=== PATIENT | female | born 2000 | race Caucasian/White ===

== ENCOUNTER → 2019-04-21 | Outpatient (CLI) | payer SELFPAY | PROVIDERS: Family Provider Nurse Practitioner; Visit Provider Internal Medicine | DX: K76.0 Fatty (change of) liver, not elsewhere classified (principal); R10.13 Epigastric pain | CPT/HCPCS: 76705 ==

== ENCOUNTER 2019-04-28 18:39 | Emergency (ER) | payer SELFPAY ==
[2019-04-28 19:09] LABS: Basophils % 0.3 %; Eosinophils # 0.2 10^3/uL (0.0-0.8); Eosinophils % 2.3 %; Hematocrit 40.4 % (37.0-47.0); Hemoglobin 12.9 g/dL (11.5-15.3); Lymphocytes # 2.1 10^3/uL (0.8-4.8); Lymphocytes % 29.8 %; Mean Corpuscular HGB Conc 31.9 g/dL (30.0-36.0); Mean Corpuscular Volume 84.7 fL (81-99); Mean Platelet Volume 9.9 fL (7.4-10.4); Monocytes # 0.6 10^3/uL (0.2-0.9); Monocytes % 7.8 %; Neutrophils # 4.2 10^3/uL (1.8-7.7); Neutrophils % 59.5 %; Nucleated Red Blood Cells % 0 %; Platelet Count 255 10^3/cmm (130-400); Red Blood Count 4.77 10^6/uL (4.1-5.3); Red Cell Distribution Width 15.2 % (12.1-15.1)
[2019-04-28 19:22] LABS: Alanine Aminotransferase 25 U/L (0-33); Albumin Level 4.6 g/dL (3.5-5.2); Alkaline Phosphatase 86 IU/L (35-105); Anion Gap 16.7 (5-19); Aspartate Amino Transferase 20 U/L (0-32); Blood Urea Nitrogen 12 mg/dL (6-20); Calcium 10.2 mg/Dl (8.6-10.0); Carbon Dioxide 25 mmol/L (22-29); Chloride 101 mmol/L (98-107); Globulin 3.3 g/dL (1.3-4.6); Glucose 114 mg/dL (74-109); Lipase 20 U/L (13-60); Potassium 3.7 mmol/L (3.5-5.1); Sodium 139 mmol/L (136-145); Total Bilirubin 0.3 mg/dL (0.15-1.2); Total Protein 7.9 g/dL (6.6-8.7)
[2019-04-28 20:49] VITALS: BP 131/81; PULSE 90; RESP 17; O2SAT 99
[2019-04-28 21:51] LABS: HCG Qualitative Urine. Negative (Negative)
== END 2019-04-28 23:15 | disposition home or self-care (01) ==
LOC: ER 21:12
PROVIDERS: Emergency Medicine; Emergency Provider Physician Assistant; Family Provider Nurse Practitioner
DX: Z53.21 Procedure and treatment not carried out due to patient leaving prior to being seen by health care provider (principal)
CPT/HCPCS: 36415; 80053; 81025; 83690; 85025; 99281; 99283

== ENCOUNTER → 2019-05-29 09:15 | Outpatient (BNVA) | payer SELFPAY | PROVIDERS: Family Provider Nurse Practitioner; Referring Provider Obstetrics & Gynecology; Visit Provider Obstetrics & Gynecology | DX: N83.291 Other ovarian cyst, right side (principal) | CPT/HCPCS: 76830 ==

== ENCOUNTER → 2019-06-05 08:54 | Outpatient (BNVA) | payer SELFPAY | PROVIDERS: Family Provider Nurse Practitioner; Visit Provider Obstetrics & Gynecology | DX: N91.1 Secondary amenorrhea (principal) | CPT/HCPCS: 81003; 81025; 84146; 84443; 85027 ==

== ENCOUNTER 2019-06-10 08:59 | Day surgery (SDC) | payer SELFPAY ==
[2019-06-09 11:21] VITALS: BMI 35.9
--- NOTE | 2019-06-09 11:35 | P.ANESASSM_ITS ---
Pre-Anesthetic Assessment Pre-Anesthetic Assessment: Height/Weight: Height 1.65 m Weight 97.976 kg Preop Diagnosis: Right ovarian cyst Proposed Procedure: Operation Date: 06/10/19 10:30 Proposed Procedures p Laparoscopic Ovarian Cystectomy(Not Applicable) - Kingsley Pfeiffer MD s Poss Laparoscopic Salpingo Oophorectomy(Not Applicable) - Kingsley Pfeiffer MD Social: Social History: No alcohol and No tobacco Exam: Pre-Anes Outpt Exam: alert, oriented x 3, clear to auscultation bilaterally and regular rate & rhythm Airway: Submandibular: WNL Cervical ROM: WNL MP: 1 Dentition: Other (teeth ok) History/ROS: No significant history except as noted Pulmonary: Pulmonary: None reported CV/HEM: CV/HEM: None reported : : None reported Hepatic: Hepatic: None reported GI: GI: GERD (occ) Metabolic: Metabolic: Morbid obesity Musc/skel: Musc/skel: None reported Neuropsych: Neuropsych: None reported Anesthetic Plan: ASA status: 2 Anesthesia: Anesthesia Evaluation and General Other: PONV Risk of > 500 ml blood loss (7ml/kg in children): No PFSH Anesthesia PFSH: Medical History 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 Obesity Right ovarian cyst Surgical History History of removal of retained hardware (03/20/12) Hardware in ring finger removed by Dr. Schwartz at [facility] in [place], [place]. Status post surgery (02/14/12) Right ring finger fracture. Pin put in by Dr Schwartz at [facility] in [place], [place]. Family History Grandmother Diabetes maternal Hypertension MATERNAL Grandfather Hypertension MATERNAL Mother Hypertension Social History Smoking and tobacco status: never smoked Alcohol intake: never Substance/Drug Use: never Female Reproductive History: Date of last menstrual period: 12/18/18 Data Anesthesia Cardiac Studies: No Data to Display
[2019-06-10] VITALS (13 sets, daily range): BP systolic 128–161; BP diastolic 72–87; PULSE 67–93; RESP 10–21; TEMP 36.4–37; O2SAT 93–100
[2019-06-10] MEDS: ketorolac 30 mg/mL INJ IVP (10:01)
[2019-06-10] MEDS: sodium chloride 0.9% 1,000 ML 30 ML IV (10:02)
[2019-06-10] MEDS: scopolamine 1.5 Patch 1 PATCH TRANSDERMA (10:02)
[2019-06-10 10:24] LABS: OR HCG Qualitative Urine Negative (Negative)
--- NOTE | 2019-06-10 11:43 | P.HPUD_ITS ---
Surgery/Procedure H&P Update DATE OF PROCEDURE: June 10, 2019 DATE H&P PERFORMED: 06/05/19 H&P UPDATE INFORMATION: H&P completed within last 30 days, No changes to prior documentation and [place] [facility] [place] date indicated PREOP DIAGNOSIS: Right ovarian cyst PLANNED PROCEDURE: Operation Date: 06/10/19 10:30 Proposed Procedures p Laparoscopic Ovarian Cystectomy(Not Applicable) - Kingsley Pfeiffer MD s Poss Laparoscopic Salpingo Oophorectomy(Not Applicable) - Kingsley Pfeiffer MD
[2019-06-10] MEDS: midazolam 1 mg/mL INJ 2 mL 2 MG IVP (12:03)
--- NOTE | 2019-06-10 14:15 | P.OP_ITS ---
Operative Report Date of procedure: June 10, 2019 Pre-op Diagnosis: Right ovarian cyst Post-op Diagnosis: Right paratubal cyst Procedure Done: Laparoscopic excision of right paratubal cyst Specimens removed/disposition: Right paratubal cyst Surgeon: Kingsley Pfeiffer Bag Machine Set Up Operator: Geovanni Baptiste MS 3 Anesthesia: General Estimated blood loss (mL): 10 IV fluids (mL): 1,000 Complications: None Brief History: Patient is a 19-year-old 1, para 1-0-0-1 with an LMP of 12/17/2018. She presented to the office on 12/09/2018 as an ER follow-up due to severe lower abdominal/pelvic pain. She had had a CT scan done in the ER which had shown a right adnexal cyst. On review of past imaging, the cyst was noted to been present since at least 2013 and was thought to be a paratubal cyst at that time. Because of its appearance, recommendations were to repeat ultrasound in approximately 4 to 6 months. She returned to the office on 05/29/2019 at which time ultrasound was performed. The cyst had actually enlarged in size and was now 11.0 x 9.6 x 9.6 cm. Due to it enlarging, recommendations were to proceed with surgical removal. In addition she has continued to have right lower quadrant/right pelvic pain which she blames on the cyst. Procedure: The patient was taken to the operating room where general anesthesia was obtained. She was prepped and draped in the usual sterile fashion in the dorsal supine position with legs in Ced style stirrups. Sequential compression boots were placed prior to starting the case. Bladder was drained and exam under anesthesia was performed. She was found to have minimal uterine prolapse. Weighted speculum was placed in the vagina and the cervix was grasped with a single-tooth tenaculum. A ZUMI was placed. The infraumbilical region was injected with 2% lidocaine with epinephrine. Skin incision was made with a knife in the lower edge of the navel and a size 5 trocar and sheath were inserted under direct visualization using an Optiview type technique. Trocar was removed and replaced with just the laparoscope confirming intra-abdominal placement. The anterior abdominal wall was inspected and noted to be free of adhesions. Large cyst was seen filling the pelvis. In the left lower quadrant lateral to the inferior epigastric vessels, the skin was injected with 2% lidocaine with epinephrine. Skin incision was made with the knife and a 5 mm trocar and sheath were inserted under direct visualization. The pelvis was thoroughly inspected. She was found to have a large, approximately 8 cm diameter cyst arising within the left adnexal region. On further inspection it was found to not be attached to the ovary at all and was a large paratubal cyst within the mesosalpinx, stretching the fallopian tube over the cyst. The right and left ovaries both appeared normal. Uterus appeared normal. On inspection of the cyst, a fairly avascular area was identified within the mesosalpinx and this was opened giving access to the cyst directly. This was able to be further opened within the mesosalpinx with care taken not to damage the fallopian tubes or major vessels running through the mesosalpinx. The cyst was able to be completely shelled out of the mesosalpinx. Vessels to the cyst were sealed with the Voyant sealing device. The umbilical trocar was removed and a size 10 trocar and sheath inserted at the navel site. Laparoscopic pouch was passed through the umbilical site. However, the cyst was too large to place within the pouch. As a result an aspiration needle was placed into the cyst and the cyst drained. The fluid appeared serous in nature and was completely clear. Approximately 450 mL was drained from the cyst. Cyst was then able to be placed in the pouch brought up to the navel and brought out through the umbilical site. Dissection area was inspected and noted to be hemostatic. The distal end of the fallopian tube and the open area of the mesosalpinx was wrapped in Interceed in the hopes of preventing adhesion formation. The abdomen was deflated and the ports removed. The 5 mm sites were closed with single stitches of 4-0 Vicryl suture. The umbilical site was closed with a deep stitch of 4-0 Vicryl suture followed by subcuticular closure of the skin. Skin glue was applied to the incision sites. The ZUMI was removed and there was minimal bleeding from the tenaculum site. Patient tolerated the procedures well. Sponge and needle counts were correct. DRAINS: None FINDINGS: Approximately 8 cm diameter right paratubal cyst within the mesosalpinx. There was no ovarian involvement with the cyst. POSTOPERATIVE STATUS: The patient was transferred to the recovery room in satisfactory condition. DISPOSITION: Patient was to be discharged home when criteria was met. FOLLOWUP APPOINTMENT: Patient was to followup in my office on 06/23/2019. PRESCRIPTIONS: She received prescriptions for: Ibuprofen 800 mg, 1 tablet 3 times a day as needed for pain, #40, 0 refills. [place] 5/325, 1 to 2 tablets every 6 hours as needed for pain, #20, 0 refills
[2019-06-10] MEDS: HYDROcodone-acetaminophen 5-325 mg Tablet PO (15:17)
== END 2019-06-10 15:56 | disposition home or self-care (01) ==
PROVIDERS: Family Provider Nurse Practitioner; PCP Nurse Practitioner; Visit Provider Obstetrics & Gynecology
PROC: (CPT 58662; principal; 2019-06-10 10:30)
DX: N83.8 Other noninflammatory disorders of ovary, fallopian tube and broad ligament (principal); E66.01 Morbid (severe) obesity due to excess calories; Z68.35 Body mass index [BMI] 35.0-35.9, adult; Z83.3 Family history of diabetes mellitus; Z82.49 Family history of ischemic heart disease and other diseases of the circulatory system
CPT/HCPCS: 58662; 12345; 81025; 84703; 88304; 96374; 96375; J0330; J1100; J1885; J2001; J2250; J2405; J2704; J3010; J3490; J7030

== ENCOUNTER → 2019-07-08 15:52 | Outpatient (BNVA) | payer SELFPAY | PROVIDERS: Family Provider Nurse Practitioner; PCP Nurse Practitioner; Visit Provider Nurse Practitioner | DX: Z01.89 Encounter for other specified special examinations (principal) | CPT/HCPCS: 87210 ==

== ENCOUNTER → 2019-10-27 11:50 | Outpatient (BNVA) | payer SELFPAY | PROVIDERS: Family Provider Nurse Practitioner; PCP Nurse Practitioner; Visit Provider Nurse Practitioner Family | DX: N91.1 Secondary amenorrhea (principal); N30.00 Acute cystitis without hematuria; R10.9 Unspecified abdominal pain | CPT/HCPCS: 80053; 81000; 81025; 84702; 85025 ==

== ENCOUNTER 2020-10-11 21:36 | Emergency (ER) | payer SELFPAY ==
[2020-10-11 21:42] VITALS: BP 137/88; PULSE 80; RESP 18; TEMP 36.9; O2SAT 97; BMI 41.5
--- NOTE | 2020-10-11 21:58 | CTR_ITS ---
PROCEDURE INFORMATION: Exam: CT Abdomen And Pelvis With Contrast Exam date and time: 10/11/2020 9:58 PM Age: 20 years old Clinical indication: Nausea and vomiting; Abdominal pain; Periumbilical; Prior surgery; Surgery type: Laproscopic; Additional info: Abd pain TECHNIQUE: Imaging protocol: Computed tomography of the abdomen and pelvis with contrast. Radiation optimization: All CT scans at this facility use at least one of these dose optimization techniques: automated exposure control; mA and/or kV adjustment per patient size (includes targeted exams where dose is matched to clinical indication); or iterative reconstruction. Contrast material: OMNI 300; Contrast volume: 95 ml; Contrast route: INTRAVENOUS (IV); COMPARISON: CT Abdomen/Pelvis Renal [id number] 11/16/2018 6:55 PM RADIATION DOSE METRICS: Total DLP (mGy-cm): 1928.3 FINDINGS: Lungs: There is some mild dependent atelectasis at the lung bases. Liver: There is a diffuse decrease in hepatic parenchymal density, consistent with mild fatty infiltration. There is no focal abnormality within the liver. Gallbladder and bile ducts: The gallbladder is normal. Pancreas: The pancreas is normal. Spleen: The spleen demonstrates punctate calcifications, consistent with remote granulomatous organism exposure. Adrenal glands: The adrenal glands are normal. Kidneys and ureters: The kidneys are normal. There is no evidence of hydronephrosis. There is no evidence of renal or ureteral calcifications. Stomach and bowel: There is no evidence of colitis/diverticulitis. Appendix: A normal appendix is identified. Intraperitoneal space: Unremarkable. No free air. No significant fluid collection. Vasculature: The aorta is normal. Lymph nodes: There are small periaortic and aortocaval lymph nodes measuring up to 7 x 14 mm but no adenopathy. Urinary bladder: Unremarkable as visualized. Reproductive: Unremarkable as visualized. Bones/joints: Unremarkable. No acute fracture. Soft tissues: Unremarkable. CT/CT abdomen pelvis w con* [id number] IMPRESSION: 1. Old granulomatous disease. 2. Mild fatty liver 3. No acute finding. Radiation Dose CTDIVOL = (mGy): DLP = 1928.3 (mGy-cm)
--- NOTE | 2020-10-11 22:02 | ED_ITS ---
HPI - Abdominal Pain General: Chief Complaint: Abdominal Pain Stated Complaint: STOMACH PAINS, NAUSEA Time Seen by Provider: 10/11/20 21:55 Source: patient Mode of arrival: ambulatory Limitations: no limitations History of Present Illness: HPI narrative: 20-year-old female states she been having abdominal pain over the last 2 days. She states been sharp in nature and in her mid abdomen. She states that the pain is currently a 6 out of 10. Is worse with movement proved with rest. Denies any vomiting or diarrhea. She had a history of ovarian cyst in the past. Denies any fevers. Associated Symptoms: Denies chills, dysuria and fever(s) Related Data: Date of Last Menstrual Period: 05/11/19 Review of Systems Const: Denies: fever(s), chills, body aches or change in appetite Eyes: Denies: blurry vision or eye discomfort ENMT: Denies: throat pain or dental pain Card: Denies: chest pain Resp: Denies: dyspnea GI: Reports: abdominal pain : Denies: dysuria Musc: Denies: neck pain or back pain Skin/Breast: Denies: rash Neuro: Denies: headache(s) Psych: Denies: depression Rick/Lymph: Denies: easy bruising All/Imm: Denies: urticaria PFSH ED PFSH: Medical History (Updated 10/11/20 @ 23:58 by Norman Serrano MD) 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 Surgical History History of laparoscopy (06/10/19) Laparoscopic excision of right paratubal cyst. [place]feiffer [place] [facility] Pathology: Serous cystadenoma History of removal of retained hardware (03/20/12) Hardware in ring finger [place] Dr. Schwartz [place] [facility] [place]. Status post surgery (02/14/12) Right ring finger fracture. Pin put in by Dr Schwartz at [facility] [place] Family History Grandmother Diabetes maternal Hypertension MATERNAL Grandfather Hypertension MATERNAL Mother Hypertension Social History Smoking and tobacco status: never smoked Second hand smoke exposure: No Smoking risk assessment/counseling performed?: No Alcohol intake: never Desire information about alcohol rehabilitation?: No Counseling given: No Desire information about substance/drug rehabilitation?: No Counseling given: No Adopted: No Caregiver/support person: No Lives independently: Yes Household members: spouse and children Marital status: Number of children: 1 service: No Current occupational status: employed History of recent travel: No Current gender identity: Female Female Reproductive History: Date of last menstrual period: 05/11/19 Physical Exam Const: COMMON NORMALS: no acute distress, patient oriented x3 and healthy appearing HENMT: COMMON NORMALS: normocephalic and atraumatic HEAD & SCALP: normocephalic and atraumatic Eye: COMMON NORMALS: Equal, round and reactive pupils present and EOMs intact bilaterally PUPIL: Yes Equal, round and reactive pupils present Neck/C-Spine: COMMON NORMALS: full ROM and supple Chest: COMMONS NORMALS: normal inspection of the chest and normal palpation of entire chest wall Resp: COMMON NORMALS: normal respiratory effort, No retractions, No use of accessory muscles and clear to auscultation bilaterally AUSCULTATION: clear to auscultation bilaterally Cardio: COMMON NORMALS: regular rate, regular rhythm and No murmurs present (Cardio) RATE: regular rate RHYTHM: regular rhythm GI: COMMON NORMALS: Normal to inspection, nondistended, normoactive bowel sounds present, Soft to palpation and no masses PALPATION: Yes Soft to palpation OTHER: mid abdominal tenderness mild Extremity: COMMON NORMALS: normal to inspection and full ROM Neuro: COMMON NORMALS: patient oriented x3, moves all extremities and no focal motor deficits Psych: COMMON NORMALS: mental status grossly normal, Normal thought process present and cooperative THOUGHT PROCESS: Normal thought process present Skin: COMMON NORMALS: no rashes or lesions noted and no wounds GENERAL SKIN EXAM: no rashes or lesions noted Course Vital Signs: Vital signs: Vital Signs Temperature 98.4 F 10/11/20 21:42 Pulse Rate 69 10/11/20 22:26 Respiratory Rate 18 10/11/20 22:26 Blood Pressure 114/64 10/11/20 22:26 Pulse Oximetry 97 10/11/20 22:26 MDM - Abdominal Pain MDM Narrative: Medical decision making narrative: Patient presents here with abdominal pain since resolved. Her exam at discharge is benign. Blood work and CT of her abdomen are negative. She feels improved and is stable for discharge. She is to follow-up with PCP and return if worsening. Lab Data: Labs: Lab Results 10/11/20 10/11/20 10/11/20 Range/Units 22:14 22:14 22:14 WBC 7.8 (4.0-10.0) 10^3/ uL RBC 4.78 (4.1-5.3) 10^6/u L Hgb 13.0 (11.5-15.3) g/dL Hct 40.6 (37.0-47.0) % MCV 84.9 (81-99) fL MCH 27.2 L (28.0-34.0) pg MCHC 32.0 (30.0-36.0) g/dL RDW 14.5 (12.1-15.1) % Plt Count 269 (130-400) 10^3/c mm MPV 10.5 H (7.4-10.4) fL Neut % (Auto) 59.3 % Lymph % (Auto) 30.1 % Bee % (Auto) 7.9 % Eos % (Auto) 2.2 % Baso % (Auto) 0.4 % Neut # (Auto) 4.62 (1.8-7.7) 10^3/u L Lymph # (Auto) 2.4 (0.8-4.8) 10^3/u L Bee # (Auto) 0.6 (0.2-0.9) 10^3/u L Eos # (Auto) 0.2 (0.0-0.8) 10^3/u L Baso # (Auto) 0.0 (0.0-0.1) 10^3/u L Nucleated RBC % (a uto) 0 % Nucleated RBCs # 0.0 /100WBC Sodium 138 (136-145) mmol/L Potassium 3.7 (3.5-5.1) mmol/L Chloride 101 (98-107) mmol/L Carbon Dioxide 27 (22-29) mmol/L Anion Gap 13.7 (5-19) BUN 11 (6-20) mg/dL Creatinine 0.6 (0.5-0.9) mg/dL GFR Calculation 125.0 (90-130) mL/min Glucose 91 (65-115) mg/dL Calculated Osmolal ity 285 (285-295) mOsm/k g Calcium 9.4 (8.5-10.5) mg/dL Total Bilirubin 0.3 (0.15-1.2) mg/dL AST 15 (0-32) U/L ALT 17 (0-33) U/L Alkaline Phosphata se 69 (35-105) IU/L Total Protein 7.2 (6.6-8.7) g/dL Albumin 4.1 (3.5-5.2) g/dL Globulin 3.1 (1.3-4.6) g/dL Lipase 22 (13-60) U/L HCG, Qual Negative (Negative) Urine Color (Yellow) Urine Appearance (CLEAR) Urine pH (5-7) Ur Specific Gravit y (1.005-1.030) Urine Protein (Negative) Urine Glucose (UA) (Normal) Urine Ketones (Negative) Urine Blood (Negative) Urine Nitrate (Negative) Urine Bilirubin (Negative) Urine Urobilinogen (Negative) mg/dL Ur Leukocyte Allyn ase (Negative) 10/11/20 Range/Units 22:15 WBC (4.0-10.0) 10^3/ uL RBC (4.1-5.3) 10^6/u L Hgb (11.5-15.3) g/dL Hct (37.0-47.0) % MCV (81-99) fL MCH (28.0-34.0) pg MCHC (30.0-36.0) g/dL RDW (12.1-15.1) % Plt Count (130-400) 10^3/c mm MPV (7.4-10.4) fL Neut % (Auto) % Lymph % (Auto) % Bee % (Auto) % Eos % (Auto) % Baso % (Auto) % Neut # (Auto) (1.8-7.7) 10^3/u L Lymph # (Auto) (0.8-4.8) 10^3/u L Bee # (Auto) (0.2-0.9) 10^3/u L Eos # (Auto) (0.0-0.8) 10^3/u L Baso # (Auto) (0.0-0.1) 10^3/u L Nucleated RBC % (a uto) % Nucleated RBCs # /100WBC Sodium (136-145) mmol/L Potassium (3.5-5.1) mmol/L Chloride (98-107) mmol/L Carbon Dioxide (22-29) mmol/L Anion Gap (5-19) BUN (6-20) mg/dL Creatinine (0.5-0.9) mg/dL GFR Calculation (90-130) mL/min Glucose (65-115) mg/dL Calculated Osmolal ity (285-295) mOsm/k g Calcium (8.5-10.5) mg/dL Total Bilirubin (0.15-1.2) mg/dL AST (0-32) U/L ALT (0-33) U/L Alkaline Phosphata se (35-105) IU/L Total Protein (6.6-8.7) g/dL Albumin (3.5-5.2) g/dL Globulin (1.3-4.6) g/dL Lipase (13-60) U/L HCG, Qual (Negative) Urine Color Yellow (Yellow) Urine Appearance Clear (CLEAR) Urine pH 6 (5-7) Ur Specific Gravit y 1.020 (1.005-1.030) Urine Protein Neg (Negative) Urine Glucose (UA) Norm (Normal) Urine Ketones Negative (Negative) Urine Blood Neg (Negative) Urine Nitrate Negative (Negative) Urine Bilirubin Neg (Negative) Urine Urobilinogen 4 H (Negative) mg/dL Ur Leukocyte Allyn ase Negative (Negative) Imaging Data ^: CT Abd/Pel: Radiologist's impression: [address] [place] [address] CT Scan Report Signed Patient: Nimo Chavarria Unit #: [id number] : 2000 Age/Sex: 20 / F ADM Date: 10/11/20 Loc: ER Room/Bed: Attending Dr: Ordering Provider/Ordering MD: Nomran Serrano MD Date of Service: 06/21/21 Procedure(s): CT abdomen pelvis w con* [id number] Accession Number(s): [id number] Report Number: [id number] PROCEDURE INFORMATION: Exam: CT Abdomen And Pelvis With Contrast Exam date and time: 10/11/2020 9:58 PM Age: 20 years old Clinical indication: Nausea and vomiting; Abdominal pain; Periumbilical; Prior surgery; Surgery type: Laproscopic; Additional info: Abd pain TECHNIQUE: Imaging protocol: Computed tomography of the abdomen and pelvis with contrast. Radiation optimization: All CT scans at this facility use at least one of these dose optimization techniques: automated exposure control; mA and/or kV adjustment per patient size (includes targeted exams where dose is matched to clinical indication); or iterative reconstruction. Contrast material: OMNI 300; Contrast volume: 95 ml; Contrast route: INTRAVENOUS (IV); COMPARISON: CT Abdomen/Pelvis Renal [id number] 11/16/2018 6:55 PM RADIATION DOSE METRICS: Total DLP (mGy-cm): 1928.3 FINDINGS: Lungs: There is some mild dependent atelectasis at the lung bases. Liver: There is a diffuse decrease in hepatic parenchymal density, consistent with mild fatty infiltration. There is no focal abnormality within the liver. Gallbladder and bile ducts: The gallbladder is normal. Pancreas: The pancreas is normal. Spleen: The spleen demonstrates punctate calcifications, consistent with remote granulomatous organism exposure. Adrenal glands: The adrenal glands are normal. Kidneys and ureters: The kidneys are normal. There is no evidence of hydronephrosis. There is no evidence of renal or ureteral calcifications. Stomach and bowel: There is no evidence of colitis/diverticulitis. Appendix: A normal appendix is identified. Intraperitoneal space: Unremarkable. No free air. No significant fluid collection. Vasculature: The aorta is normal. Lymph nodes: There are small periaortic and aortocaval lymph nodes measuring up to 7 x 14 mm but no adenopathy. Urinary bladder: Unremarkable as visualized. Reproductive: Unremarkable as visualized. Bones/joints: Unremarkable. No acute fracture. Soft tissues: Unremarkable. CT/CT abdomen pelvis w con* [id number] IMPRESSION: 1. Old granulomatous disease. 2. Mild fatty liver 3. No acute finding. Discharge Plan Discharge Patient Disposition: Home Clinical Impression: Abdominal pain Qualifiers: Abdominal location: generalized Qualified Code(s): R10.84 - Generalized abdominal pain Condition: Stable Prescriptions: No Action acetaminophen [Tylenol Extra Strength] 500 mg tablet 1,000 mg PO Q6H PRN (Reason: Pain) RF: 0 pantoprazole [Protonix] 40 mg tablet,delayed release (DR/EC) 40 mg PO DAILY RF: 0 cephalexin [Keflex] 500 mg capsule 500 mg PO TID 7 Days Qty: 21 RF: 0 fluconazole [Diflucan] 150 mg tablet 150 mg PO DAILY Qty: 1 RF: 0 Ortho-Novum (28) 1-35 mg-mcg tablet 1 tab PO DAILY Qty: 28 RF: 5 ibuprofen 800 mg tablet 800 mg PO TID PRN (Reason: pain) Qty: 40 RF: 0 Discharge Orders: Discharge ED (Routine); Ordered 10/11/20 Ordered By: Norman Serrano Referrals: Naveen Huerta FNP-C [Primary Care Provider] - 1-3 days Discharge Diet: Advance as tolerated Discharge Activity: Resume usual activity Patient Instructions: Abdominal Pain (ED) Coding Level of Care Code ED Tow Truck Driver for Ana Fwd Exam Comprehensive
[2020-10-11] MEDS: sodium chloride 0.9% 1,000 ML 999 ML IV (22:20)
[2020-10-11 22:21] VITALS: RESP 18; O2SAT 98
[2020-10-11] MEDS: HYDROmorphone 1 mg/mL INJ 1 mL IVP (22:21)
[2020-10-11] MEDS: ondansetron 2 mg/ML SDV 2 mL 4 MG IVP (22:21)
[2020-10-11 22:26] VITALS: BP 114/64; PULSE 69; RESP 18; O2SAT 97
[2020-10-11 22:32] LABS: Add Urine Microscopic? NO; Charge for UA Resulting for Rev
[2020-10-11 22:35] LABS: Basophils % 0.4 %; Eosinophils # 0.2 10^3/uL (0.0-0.8); Eosinophils % 2.2 %; Hematocrit 40.6 % (37.0-47.0); Lymphocytes # 2.4 10^3/uL (0.8-4.8); Lymphocytes % 30.1 %; Mean Corpuscular Hemoglobin 27.2 pg (28.0-34.0); Mean Corpuscular Volume 84.9 fL (81-99); Mean Platelet Volume 10.5 fL (7.4-10.4); Monocytes # 0.6 10^3/uL (0.2-0.9); Monocytes % 7.9 %; Neutrophils # 4.62 10^3/uL (1.8-7.7); Neutrophils % 59.3 %; Nucleated Red Blood Cells % 0 %; Platelet Count 269 10^3/cmm (130-400); Red Blood Count 4.78 10^6/uL (4.1-5.3); Red Cell Distribution Width 14.5 % (12.1-15.1); White Blood Count 7.8 10^3/uL (4.0-10.0)
[2020-10-11 22:39] LABS: Bilirubin Urine Neg (Negative); Blood Urine Neg (Negative); Glucose Urine UA Norm (Normal); Ketones Urine Negative (Negative); Leukocyte Esterase Urine Negative (Negative); Nitrate Urine Negative (Negative); Protein Urine Neg (Negative); Urine Appearance Clear (CLEAR); Urine Color Yellow (Yellow); Urobilinogen Urine 4 mg/dL (Negative); pH Urine 6 (5-7)
[2020-10-11 22:43] LABS: HCG, Serum Qual Negative (Negative)
[2020-10-11 22:50] LABS: Alanine Aminotransferase 17 U/L (0-33); Albumin Level 4.1 g/dL (3.5-5.2); Alkaline Phosphatase 69 IU/L (35-105); Anion Gap 13.7 (5-19); Aspartate Amino Transferase 15 U/L (0-32); Blood Urea Nitrogen 11 mg/dL (6-20); Calcium 9.4 mg/dL (8.5-10.5); Carbon Dioxide 27 mmol/L (22-29); Chloride 101 mmol/L (98-107); Globulin 3.1 g/dL (1.3-4.6); Glucose 91 mg/dL (65-115); Lipase 22 U/L (13-60); Osmolality Calculated 285 mOsm/kg (285-295); Potassium 3.7 mmol/L (3.5-5.1); Sodium 138 mmol/L (136-145); Total Bilirubin 0.3 mg/dL (0.15-1.2); Total Protein 7.2 g/dL (6.6-8.7)
[2020-10-11] MEDS: iohexol 300 mg/mL 100 mL Btl IV (23:02)
[2020-10-12 00:13] VITALS: BP 113/78; PULSE 77; RESP 16; O2SAT 94
== END 2020-10-12 00:15 | disposition home or self-care (01) ==
PROVIDERS: Emergency Provider Emergency Medicine; PCP Nurse Practitioner
DX: R10.84 Generalized abdominal pain (principal)
CPT/HCPCS: 74177; 80053; 81003; 83690; 84703; 85025; 96361; 96374; 96375; 99283; J1170; J2405; J7030; Q9967

== ENCOUNTER 2020-12-30 11:17 | Outpatient (CLI) | payer SELFPAY ==
--- NOTE | 2020-12-30 11:45 | US_ITS ---
WS: [id number] ULTRASOUND PELVIS TECHNIQUE: Transabdominal. CLINICAL INFORMATION: N91.1 - Secondary amenorrhea : No. COMPARISON: May 29, 2019 FINDINGS: Uterus Orientation: Anteverted. Size: 7.1 cm x 5.4 cm x 2.7 cm Masses: None. Cervix: Normal Endometrium: Normal. Endometrium thickness: 0.9 cm. Adnexa: No adnexal masses. Right ovary size: 2.8 cm x 2.3 cm x 1.3 cm. Right ovary volume: 4.4 ccm3 Left ovary size: 2.9 cm x 2.8 cm x 1.9 cm. Left ovary volume: 7.9 ccm3 Free fluid: None. Other findings: None. US/US pelvic complete* [id number] IMPRESSION: Normal pelvic ultrasound
== END 2020-12-30 11:18 | disposition home or self-care (01) ==
LOC: US 11:21
PROVIDERS: PCP Nurse Practitioner; Visit Provider Nurse Practitioner
DX: N91.1 Secondary amenorrhea (principal)
CPT/HCPCS: 76856

== ENCOUNTER → 2021-02-28 13:40 | Outpatient (BNVA) | payer SELFPAY | PROVIDERS: PCP Nurse Practitioner; Visit Provider Nurse Practitioner | DX: R10.2 Pelvic and perineal pain (principal) | CPT/HCPCS: 84702 ==

== ENCOUNTER → 2021-06-09 16:30 | Outpatient (BNVA) | payer MEDICAID, SELFPAY | PROVIDERS: PCP Nurse Practitioner; Visit Provider Nurse Practitioner Family | DX: N93.9 Abnormal uterine and vaginal bleeding, unspecified (principal) | CPT/HCPCS: 80053; 81025; 84702; 85025 ==

== ENCOUNTER 2021-10-09 10:04 | Emergency (ER) | payer MEDICAID, SELFPAY ==
[2021-10-09 10:25] VITALS: BP 139/82; PULSE 75; RESP 16; TEMP 36.8; O2SAT 98; BMI 41.5
--- NOTE | 2021-10-09 10:32 | W.ED.COVID ---
HPI - COVID General: Chief Complaint: General Medical Stated Complaint: wants tested for covid Time Seen by Provider: 10/09/21 10:06 History of Present Illness: Patient is a 21-year-old female comes to the ED for COVID testing. Her symptoms started approximately 3 days ago. She is having a sore throat and body aches. She had a positive home COVID test yesterday. She has been around her mother recently who was diagnosed with COVID-19 as well. Denies any other symptoms such as fevers, shortness of breath, nausea/vomiting or diarrhea. COVID 19 common symptoms: positive body aches and throat pain; negative fever(s), chills, non-productive cough, productive cough, dyspnea, fatigue, headache(s), nasal congestion, nausea, vomiting or diarrhea COVID 19 other sytmptoms: negative chest pain COVID Results: SARS-CoV-2 (PCR) Not detected (NOT DETECT) 10/09/21 10:35 10/09/21 Coronavirus Type 229E (PCR) Not detected (NOT DETECT) 10/09/21 10:35 10/09/21 Review of Systems Const: Reports: body aches; Denies: fever(s), chills or fatigue Eyes: Denies: change in vision or eye discomfort ENMT: Reports: throat pain; Denies: odynophagia, nasal discharge or nasal congestion Card: Denies: chest pain, palpitations, edema, swelling of feet/ankles, dyspnea on exertion or orthopnea Resp: Denies: dyspnea, productive cough or non-productive cough GI: Denies: abdominal pain, nausea, vomiting, diarrhea, constipation or hematochezia : Denies: flank pain, dysuria or hematuria Musc: Denies: neck pain, back pain or extremity swelling Skin/Breast: Denies: rash or new lesions Neuro: Denies: headache(s), numbness in extremities or weakness in extremities PFSH ED PFSH: Medical History 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 Obesity Obesity, morbid, BMI 40.0-49.9 Right ovarian cyst 06/10/2019: Right paratubal cyst with pathology showing serous cystadenoma. Surgical History History of laparoscopy (06/10/19) Laparoscopic excision of right paratubal cyst[place] [facility] [place]ology: Serous cystadenoma History of removal of retained hardware (03/20/12) Hardware in ring finger [place] Schwartz [place] [facility] Status post surgery (02/14/12) Right ring finger fracture. Pin put in [place] Dr Schwartz [place] [facility] Family History Grandmother Diabetes maternal Hypertension MATERNAL Grandfather Hypertension MATERNAL Mother Hypertension Social History Smoking and tobacco status: never smoked Second hand smoke exposure: No Smoking risk assessment/counseling performed?: No Alcohol intake: never Desire information about alcohol rehabilitation?: No Counseling given: No Desire information about substance/drug rehabilitation?: No Counseling given: No Adopted: No Caregiver/support person: No Lives independently: Yes Household members: spouse and children Marital status: Number of children: 1 service: No Current occupational status: employed History of recent travel: No Current gender identity: Female Female Reproductive History: Date of last menstrual period: 02/15/21 Physical Exam Const: COMMON NORMALS: patient oriented x3 HENMT: COMMON NORMALS: normocephalic HEAD & SCALP: normocephalic MOUTH: Normal oral and palatal mucosa present THROAT: uvula midline and posterior oropharynx abnormal erythema Neck/C-Spine: COMMON NORMALS: supple GENERAL: Yes normal visual inspection Resp: COMMON NORMALS: normal respiratory effort, No retractions, No use of accessory muscles and clear to auscultation bilaterally AUSCULTATION: clear to auscultation bilaterally Cardio: COMMON NORMALS: regular rate, regular rhythm, S1 normal heart sound present, S2 normal heart sound present, No gallops present (Cardio), No clicks present (Cardio), No murmurs present (Cardio) and Peripheral pulses 2+ throughout RATE: regular rate RHYTHM: regular rhythm HEART SOUNDS: S1 normal heart sound present and S2 normal heart sound present PERIPHERAL PULSES: Peripheral pulses 2+ throughout GI: COMMON NORMALS: Normal to inspection, nondistended, normoactive bowel sounds present, Soft to palpation, non-tender and no masses PALPATION: Yes Soft to palpation : COMMON NORMALS: Yes no CVA tenderness BLADDER/KIDNEY EXAM: Yes no CVA tenderness Back/Pelvis: COMMON NORMALS: no CVA tenderness Extremity: COMMON NORMALS: normal to inspection Neuro: COMMON NORMALS: patient oriented x3 and moves all extremities Skin: GENERAL SKIN EXAM: dry skin Course Vital Signs: Vital signs: Vital Signs Temperature 98.2 F 10/09/21 10:25 Pulse Rate 75 10/09/21 10:25 Respiratory Rate 16 10/09/21 10:25 Blood Pressure 139/82 10/09/21 10:25 Pulse Oximetry 98 10/09/21 10:25 [facility] - COVID Medical Decision Making Patient is a 21-year-old female comes to the ED for COVID testing. She is body aches and a sore throat and was exposed to her mother who just tested positive for COVID a couple days ago. Vitals are stable. Exam of patient shows a little bit of erythema the posterior oropharynx but rest of exam is benign. Patient was swabbed for COVID and discharged home. She was told to contact [facility] in a couple hours to get COVID testing results. Return to ED precautions. Patient understood and agreed with plan. Lab Data Laboratory Results Coronavirus 229E (PCR) Not detected (NOT DETECT) 10/09/21 10:35 SARS-CoV-2 (PCR) Not detected (NOT DETECT) 10/09/21 10:35 SARS-CoV-2 (PCR) Not detected (NOT DETECT) 10/09/21 10:35 10/09/21 Coronavirus Type 229E (PCR) Not detected (NOT DETECT) 10/09/21 10:35 10/09/21 Discharge Plan Discharge Patient Disposition: Home Clinical Impression: Encounter for laboratory testing for COVID-19 virus Condition: Stable Prescriptions: No Action acetaminophen [Tylenol Extra Strength] 500 mg tablet 1,000 mg PO Q6H PRN (Reason: Pain) 0RF escitalopram oxalate [Lexapro] 10 mg tablet 10 mg PO DAILY Qty: 30 2RF Contrave 8-90 mg tablet extended release See Rx Instructions PO QAM Qty: 70 0RF Rx Instructions: 340B Week 1 - 1 tab once daily Week 2 - 1 tab BID Week 3 - 2 tab am, 1 tab pm Week 4 - 2 tab am, 2 tab pm Ozempic 0.25 mg or 0.5 mg(2 mg/1.5 mL) pen injector 0.25 mg SUBCUT .weekly Qty: 1.5 2RF Rx Instructions: 340B Ortho-Novum (28) 1-35 mg-mcg tablet 1 tab PO DAILY Qty: 28 5RF Discharge Orders: Discharge ED (Routine); Ordered 10/09/21 Ordered By: Devon Jack Referrals: Naveen Huerta, DESKTOP PUBLISHING SPECIALIST-C [Primary Care Provider] - Discharge Diet: Regular Discharge Activity: Increase activity as tolerated Activity Restrictions/Additional Instructions: Follow-up with medical provider as directed for the next 5 to 7 days reevaluation. Your COVID-19 test is pending and results should be back within the next 2 hours. [facility] in the next couple hours to find out COVID-19 test results. Drink plenty of fluids and stay hydrated. Take [id number] Tylenol or Motrin for fevers. Return to the ER or your medical provider if condition worsens. Please read and understand discharge instructions. [facility]. Please realize this is an emergency room and that we are providing you with a medical screening exam and this may not be complete and all inclusive of all the testing and or work up that you may need to determine your ailment or severity of your illness. It is very important that you follow up as instructed or that you return to the Emergency Department should you have concerns or if your condition changes or worsens in any way. Coding Level of Care Code ED Refining Equipment Operator for Ana Echeverria Exam Comprehensive
[2021-10-09 12:39] LABS: Adenovirus Not Detected (NOT DETECT); Chlamydia Pneumoniae Not Detected (NOT DETECT); Coronavirus 229E,HKU1,NL63,OC4 Not Detected (NOT DETECT); Human Metapneumovirus Not Detected (NOT DETECT); Human Rhinovirus/Enterovirus Not Detected (NOT DETECT); Influenza A Not Detected (NOT DETECT); Influenza A H1 Not Detected (NOT DETECT); Influenza A H1-2009 Not Detected (NOT DETECT); Influenza A H3 Not Detected (NOT DETECT); Influenza B Not Detected (NOT DETECT); Mycoplasma Pneumoniae Not Detected (NOT DETECT); Parainfluenza Virus Type 1 Not Detected (NOT DETECT); Parainfluenza Virus Type 2 Not Detected (NOT DETECT); Parainfluenza Virus Type 3 Not Detected (NOT DETECT); Parainfluenza Virus Type 4 Not Detected (NOT DETECT); Respiratory Syncytial Virus A Not Detected (NOT DETECT); Respiratory Syncytial Virus B Not Detected (NOT DETECT); SARS-COV-2 Not Detected (NOT DETECT)
== END 2021-10-09 11:00 | disposition home or self-care (01) ==
PROVIDERS: Emergency Medicine; Emergency Provider Physician Assistant; PCP Nurse Practitioner
DX: Z20.822 Contact with and (suspected) exposure to COVID-19 (principal)
CPT/HCPCS: 87635; 99282

== ENCOUNTER → 2022-02-02 15:44 | Outpatient (BNVA) | payer OTHER, MEDICAID, SELFPAY | PROVIDERS: PCP Nurse Practitioner; Visit Provider Nurse Practitioner Family | DX: N92.0 Excessive and frequent menstruation with regular cycle (principal); N91.1 Secondary amenorrhea | CPT/HCPCS: 80053; 84443; 84702; 85025 ==

== ENCOUNTER → 2022-02-09 15:21 | Outpatient (BNVA) | payer OTHER, MEDICAID, SELFPAY | PROVIDERS: PCP Nurse Practitioner; Visit Provider Nurse Practitioner Family | DX: R71.8 Other abnormality of red blood cells (principal); N91.1 Secondary amenorrhea | CPT/HCPCS: 83540; 84702 ==

== ENCOUNTER → 2022-03-27 10:00 | Outpatient (BNVA) | payer OTHER, MEDICAID, SELFPAY | PROVIDERS: PCP Nurse Practitioner; Visit Provider Obstetrics & Gynecology | DX: Z12.4 Encounter for screening for malignant neoplasm of cervix (principal) | CPT/HCPCS: 87491; 87591; 87661; 88175 ==

== ENCOUNTER → 2022-04-18 13:25 | Outpatient (BNVA) | payer OTHER, MEDICAID, SELFPAY | PROVIDERS: PCP Nurse Practitioner; Visit Provider Obstetrics & Gynecology | DX: N92.0 Excessive and frequent menstruation with regular cycle (principal) | CPT/HCPCS: 76830 ==

== ENCOUNTER 2022-06-13 13:36 | Emergency (ER) | payer OTHER, BC, MEDICAID, SELFPAY ==
[2022-06-13 14:00] VITALS: BP 125/91; PULSE 67; RESP 15; TEMP 36.9; O2SAT 97; BMI 43.9
[2022-06-13 16:12] VITALS: BP 129/87; PULSE 76; TEMP 36.7; O2SAT 99
[2022-06-13 17:45] LABS: Basophils % 0.4 %; Eosinophils # 0.1 10^3/uL (0.0-0.8); Eosinophils % 1.3 %; Hematocrit 43.1 % (37.0-47.0); Hemoglobin 13.5 g/dL (11.5-15.3); Lymphocytes # 2.7 10^3/uL (0.8-4.8); Lymphocytes % 32.7 %; Mean Corpuscular HGB Conc 31.3 g/dL (30.0-36.0); Mean Corpuscular Hemoglobin 26.4 pg (28.0-34.0); Mean Corpuscular Volume 84.2 fl (81-99); Mean Platelet Volume 10.3 fL (7.4-10.4); Monocytes # 0.4 10^3/uL (0.2-0.9); Monocytes % 5.3 %; Neutrophils # 4.96 10^3/uL (1.8-7.7); Neutrophils % 60.1 %; Nucleated Red Blood Cells % 0 %; Platelet Count 279 10^3/cmm (130-400); Red Blood Count 5.12 10^6/uL (4.1-5.3); White Blood Count 8.3 10^3/uL (4.0-10.0)
[2022-06-13 18:07] LABS: Add Urine Microscopic? NO; Charge for UA Resulting for Rev
[2022-06-13 18:12] LABS: Bilirubin Urine Neg (Negative); Blood Urine Neg (Negative); Glucose Urine UA Norm (Normal); Ketones Urine Negative (Negative); Leukocyte Esterase Urine Negative (Negative); Nitrate Urine Negative (Negative); Protein Urine Neg (Negative); Specific Gravity, Urine 1.025 (1.005-1.030); Urine Appearance Clear (CLEAR); Urine Color Yellow (Yellow); Urobilinogen Urine Norm (Negative); pH Urine 5 (5-7)
[2022-06-13 18:13] LABS: Alanine Aminotransferase 20 U/L (0-33); Albumin Level 4.1 g/dL (3.5-5.2); Alkaline Phosphatase 81 U/L (35-105); Anion Gap 15.8 (5-19); Aspartate Amino Transferase 17 U/L (0-32); Blood Urea Nitrogen 9 mg/dL (6-20); Calcium 9.7 mg/dL (8.5-10.5); Carbon Dioxide 25 mmol/L (22-29); Chloride 102 mmol/L (98-107); Globulin 3.9 g/dL (1.3-4.6); Glomerular Filtration Rate 102.8 mL/min (90-130); Glucose 85 mg/dL (65-115); Lipase 19 U/L (13-60); Osmolality Calculated 286 mOsm/kg (285-295); Potassium 3.8 mmol/L (3.5-5.1); Sodium 139 mmol/L (136-145); Total Bilirubin 0.3 mg/dL (0.15-1.2)
[2022-06-13 18:27] VITALS: BP 130/89; PULSE 91; RESP 16; O2SAT 99
[2022-06-13 18:31] VITALS: BP 124/81; PULSE 82; RESP 16; O2SAT 96
--- NOTE | 2022-06-13 18:51 | USR_ITS ---
PROCEDURE INFORMATION: Exam: US Abdomen, Limited; Right Upper Quadrant Exam date and time: 06/13/2022 7:26 PM Age: 22 years old Clinical indication: Abdominal pain; Patient HX: History of acid reflux C/O epigastric pain tonight no history of abdominal surgery; Additional info: Ruq abdominal pain, n/v TECHNIQUE: Imaging protocol: Real time ultrasound of the abdomen with image documentation. Limited exam focused on the right upper quadrant. COMPARISON: US gall bladder [id number] 04/21/2019 8:28 AM FINDINGS: Liver: Moderately increased echotexture in the liver. Findings are stable and consistent with moderate fatty infiltration. Stable mild enlargement of the liver measuring 18.9 cm in length. Gallbladder: The gallbladder is unremarkable. No gallstones or intraluminal sludge. No gallbladder wall thickening. No pericholecystic fluid. Sonographic Sahu's sign is negative per report from the blood bank technologist. Biliary ducts: Normal. No stones. No dilation. Pancreas: The pancreas is unremarkable. No pancreatic ductal dilatation. Right kidney: The right kidney is unremarkable. Aorta: Visualized aorta is unremarkable. Inferior vena cava: Visualized IVC is unremarkable. Portal venous: Hepatopetal flow in the portal vein. Hepatic veins: Visualized hepatic veins are patent. Intraperitoneal space: No ascites. US/US gall bladder [id number] IMPRESSION: Stable mild hepatomegaly and stable moderate fatty infiltration of the liver.
--- NOTE | 2022-06-13 18:56 | PC.NURSE ---
REPORT GIVEN TO TAMMY Lamar RN ASSUMED CARE.
--- NOTE | 2022-06-13 18:59 | W.ED.ABDPA2 ---
HPI - Abdominal Pain General: Chief Complaint: Abdominal Pain Stated Complaint: abd pain Time Seen by Provider: 06/13/22 18:18 History of Present Illness: Patient is a 22-year-old female who comes to the ED with abdominal pain. Symptoms started yesterday a couple hours after eating. She started developing nausea and abdominal pain that is located in the epigastric and right upper quadrant of the abdomen. Pain described as a burning and cramping type pain. Currently her pain is a 2 out of 10. Yesterday pain was radiating to her back but today that has resolved. Symptoms worsen after she eats. She has had acid reflux in the past but does not take anything daily for it. She says sometimes she will take some Tums when he gets bad enough. She had an episode of emesis this morning and endorses diarrhea as well. Patient is scheduled for a D&C tomorrow due to a polyp on her uterus. Denies any fevers or past abdominal surgeries. Associated Symptoms: Reports diarrhea, nausea and vomiting; Denies chills, constipation, dysuria, fever(s), hematochezia and hematuria Review of Systems Const: Denies: fever(s), chills or fatigue Eyes: Denies: change in vision or eye discomfort ENMT: Denies: throat pain, odynophagia, nasal discharge or nasal congestion Card: Denies: chest pain, palpitations, edema, swelling of feet/ankles, dyspnea on exertion or orthopnea Resp: Denies: dyspnea, productive cough or non-productive cough GI: Reports: abdominal pain, nausea, vomiting and diarrhea; Denies: constipation or hematochezia : Denies: flank pain, dysuria or hematuria Musc: Denies: neck pain, back pain or extremity swelling Skin/Breast: Denies: rash or new lesions Neuro: Denies: headache(s), numbness in extremities or weakness in extremities PFSH ED PFSH: Medical History 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 Obesity Obesity, morbid, BMI 40.0-49.9 Right ovarian cyst 06/10/2019: Right paratubal cyst with pathology showing serous cystadenoma. Surgical History History of laparoscopy (06/10/19) Laparoscopic excision of right paratubal cyst. [place]. Pfe[place] [facility] [place] Pathology: Serous cystadenoma History of removal of retained hardware (03/20/12) Hardware in ring finger removed by Dr. Schwartz at [facility] [place], [place]. Status post surgery (02/14/12) Right ring finger fracture. Pin put in by Dr Schwartz at [facility] [place], [place]. Family History Grandmother Diabetes maternal Hypertension MATERNAL Grandfather Hypertension MATERNAL Mother Hypertension Hyperlipidemia Denies family history of Colon cancer Ovarian cancer Clotting disorder Heart disease Breast cancer Anesthesia complication Bleeding disorder Uterine cancer Thyroid condition Stroke Social History Smoking and tobacco status: never smoked Second hand smoke exposure: No Smoking risk assessment/counseling performed?: No Alcohol intake: never Desire information about alcohol rehabilitation?: No Counseling given: No Desire information about substance/drug rehabilitation?: No Counseling given: No Adopted: No Caregiver/support person: No Lives independently: Yes Household members: spouse and children Marital status: Number of children: 1 service: No Current occupational status: employed Current gender identity: Female Physical Exam Const: COMMON NORMALS: patient oriented x3 and alert GENERAL APPEARANCE: cooperative HENMT: COMMON NORMALS: normocephalic HEAD & SCALP: normocephalic MOUTH: Normal oral and palatal mucosa present THROAT: posterior oropharynx normal and uvula midline Neck/C-Spine: COMMON NORMALS: supple GENERAL: Yes normal visual inspection Resp: COMMON NORMALS: normal respiratory effort, No retractions, No use of accessory muscles and clear to auscultation bilaterally AUSCULTATION: clear to auscultation bilaterally Cardio: COMMON NORMALS: regular rate, regular rhythm, S1 normal heart sound present, S2 normal heart sound present, No gallops present (Cardio), No clicks present (Cardio), No murmurs present (Cardio) and Peripheral pulses 2+ throughout RATE: regular rate RHYTHM: regular rhythm HEART SOUNDS: S1 normal heart sound present and S2 normal heart sound present PERIPHERAL PULSES: Peripheral pulses 2+ throughout GI: COMMON NORMALS: Normal to inspection, nondistended, normoactive bowel sounds present, Soft to palpation and no masses PALPATION: Yes Soft to palpation and Yes Tenderness to palpation present (GI) Details: RUQ (Positive Sahu's sign) and other (Epigastric) : COMMON NORMALS: Yes no CVA tenderness BLADDER/KIDNEY EXAM: Yes no CVA tenderness Back/Pelvis: COMMON NORMALS: no CVA tenderness Extremity: COMMON NORMALS: normal to inspection Neuro: COMMON NORMALS: patient oriented x3 SENSORIUM/ORIENTATION: Yes alert GAIT: Yes Normal gait present Skin: GENERAL SKIN EXAM: dry skin Course Vital Signs: Vital signs: Vital Signs Temperature 98.1 F 06/13/22 16:12 Pulse Rate 81 06/13/22 21:00 Respiratory Rate 16 06/13/22 21:00 Blood Pressure 143/94 06/13/22 21:00 Pulse Oximetry 100 06/13/22 21:00 Oxygen Delivery Me thod 06/13/22 18:31 MDM - Abdominal Pain Medical Decision Making Patient is a 22-year-old female who comes to the ED with abdominal pain. Symptoms started yesterday a couple hours after eating. She started developing nausea and abdominal pain that is located in the epigastric and right upper quadrant of the abdomen. Pain described as a burning and cramping type pain. Currently her pain is a 2 out of 10. Yesterday pain was radiating to her back but today that has resolved. Symptoms worsen after she eats. She has had acid reflux in the past but does not take anything daily for it. She says sometimes she will take some Tums when he gets bad enough. She had an episode of emesis this morning and endorses diarrhea as well. Denies any fevers or past abdominal surgeries. Vital stable. Patient appears nontoxic in no acute distress or pain. She has some tenderness over epigastric and right upper quadrant of abdomen. Rest of exam is benign. Labs are unremarkable. Ultrasound gallbladder showed no acute findings. Patient diagnosed with gastritis. She was given IV fluids and Zofran here in the ED and symptoms improved. She is not having any more abdominal pain or nausea and she was able to tolerate p.o. fluids. Patient discharged home with a prescription for Zofran and told to follow-up with PCP within the next week for reevaluation. Clear liquid diet for the next 12 to 24 hours and slowly advance as tolerated. Patient understood and agreed with plan. Lab Data I reviewed the patient's lab results. 06/13/22 17:30 06/13/22 17:30 Labs/Radiology: Radiology Impressions Gallbladder Ultrasound 06/13/22 18:51 IMPRESSION: Stable mild hepatomegaly and stable moderate fatty infiltration of the liver. Laboratory Results WBC 8.3 10^3/uL (4.0-10.0) 06/13/22 17: RBC 5.12 10^6/uL (4.1-5.3) 06/13/22: Hgb 13.5 g/dL (11.5-15.3) 06/13/22 17: Hct 43.1 % (37.0-47.0) 06/13/22: MCV 84.2 fl (81-99) 06/13/22: MCH 26.4 pg (28.0-34.0) L 06/13/22: MCHC 31.3 g/dL (30.0-36.0) 06/13/22: RDW 15.0 % (12.1-15.1) 06/13/22: Plt Count 279 10^3/cmm (130-400) 06/13/22: MPV 10.3 fL (7.4-10.4) 06/13/22: Neut % (Auto) 60.1 % 06/13/22: Lymph % (Auto) 32.7 % 06/13/22: [place] % (Auto) 5.3 % 06/13/22: Eos % (Auto) 1.3 % 06/13/22: Baso % (Auto) 0.4 % 06/13/22: Neut # (Auto) 4.96 10^3/uL (1.8-7.7) 06/13/22: Lymph # (Auto) 2.7 10^3/uL (0.8-4.8) 06/13/22: [place] # (Auto) 0.4 10^3/uL (0.2-0.9) 06/13/22 17: Eos # (Auto) 0.1 10^3/uL (0.0-0.8) 06/13/22: Baso # (Auto) 0.0 10^3/uL (0.0-0.1) 06/13/22 17:30 Nucleated RBC % (auto) 0 % 06/13/22 17:30 Nucleated RBCs # 0.0 /100WBC 06/13/22 17:30 Sodium 139 mmol/L (136-145) 06/13/22 17:30 Potassium 3.8 mmol/L (3.5-5.1) 06/13/22 17:30 Chloride 102 mmol/L (98-107) 06/13/22 17:30 Carbon Dioxide 25 mmol/L (22-29) 06/13/22 17:30 Anion Gap 15.8 (5-19) 06/13/22 17:30 BUN 9 mg/dL (6-20) 06/13/22 17:30 Creatinine 0.7 mg/dL (0.5-0.9) 06/13/22 17:30 GFR Calculation 102.8 mL/min (90-130) 06/13/22 17:30 Glucose 85 mg/dL (65-115) 06/13/22 17:30 Calculated Osmolality 286 mOsm/kg (285-295) 06/13/22 17:30 Calcium 9.7 mg/dL (8.5-10.5) 06/13/22 17:30 Total Bilirubin 0.3 mg/dL (0.15-1.2) 06/13/22 17:30 AST 17 U/L (0-32) 06/13/22 17:30 ALT 20 U/L (0-33) 06/13/22 17:30 Alkaline Phosphatase 81 U/L (35-105) 06/13/22 17:30 Total Protein 8.0 g/dL (6.6-8.7) 06/13/22 17:30 Albumin 4.1 g/dL (3.5-5.2) 06/13/22 17:30 Globulin 3.9 g/dL (1.3-4.6) 06/13/22 17:30 Lipase 19 U/L (13-60) 06/13/22 17:30 Urine Color Yellow (Yellow) 06/13/22 17:20 Urine Appearance Clear (CLEAR) 06/13/22 17:20 Urine pH 5 (5-7) 06/13/22 17:20 Ur Specific [place] 1.025 (1.005-1.030) 06/13/22 17:20 Urine Protein Neg (Negative) 06/13/22 17:20 Urine Glucose (UA) Norm (Normal) 06/13/22 17:20 Urine Ketones Negative (Negative) 06/13/22 17:20 Urine Blood Neg (Negative) 06/13/22 17:20 Urine Nitrate Negative (Negative) 06/13/22 17:20 Urine Bilirubin Neg (Negative) 06/13/22 17:20 Urine Urobilinogen Norm mg/dL (Negative) 06/13/22 17:20 Ur Leukocyte Esterase Negative (Negative) 06/13/22 17:20 Discharge Plan Discharge Patient Disposition: Home Clinical Impression: Gastritis Qualifiers: Gastritis type: unspecified gastritis Chronicity: acute Gastritis bleeding: without bleeding Qualified Code(s): K29.00 - Acute gastritis without bleeding Condition: Stable Prescriptions: New ondansetron 4 mg tablet,disintegrating 4 mg PO Q8H PRN (Reason: nausea and vomiting) Qty: 15 0RF No Action acetaminophen [Tylenol Extra Strength] 500 mg tablet 1,000 mg PO Q6H PRN (Reason: Pain) Discharge Orders: Discharge ED (Routine); Ordered 06/13/22 Ordered By: Devon Jack Referrals: Naveen Huerta, MARKETING CONTENT SPECIALIST-C [Primary Care Provider] - Discharge Diet: Advance as tolerated and Clear Liquid Discharge Activity: Increase activity as tolerated Patient Instructions: Gastritis (ED) Activity Restrictions/Additional Instructions: Follow-up with medical provider as directed in the next 7 to 10 days for reevaluation. Clear liquid diet for the next 12 to 24 hours and slowly advance diet as tolerated. If you have continuing episodes of heartburn and acid reflux you might want to talk to your doctor about getting on a daily prescription medication. if you are having any reoccurring symptoms you can take [id number] Pepto-Bismol as needed. Take medications as prescribed. Return to the ER or your medical provider if condition worsens. Please read and understand discharge instructions. Thank you for choosing [facility] for your healthcare needs today. Please realize this is an emergency room and that we are providing you with a medical screening exam and this may not be complete and all inclusive of all the testing and or work up that you may need to determine your ailment or severity of your illness. It is very important that you follow up as instructed or that you return to the Emergency Department should you have concerns or if your condition changes or worsens in any way. Coding Level of Care Code ED Clip Loading Machine Adjuster for Ana Echeverria
[2022-06-13] MEDS: sodium chloride 0.9% 1,000 ML 999 ML IV (19:09)
[2022-06-13] MEDS: ondansetron 2 mg/ML SDV 2 mL 4 MG IVP (19:10)
[2022-06-13 21:00] VITALS: BP 143/94; PULSE 81; RESP 16; O2SAT 100
== END 2022-06-13 21:01 | disposition home or self-care (01) ==
PROVIDERS: Nurse Practitioner Family; Emergency Provider Physician Assistant; PCP Nurse Practitioner
DX: K29.00 Acute gastritis without bleeding (principal); K76.0 Fatty (change of) liver, not elsewhere classified
CPT/HCPCS: 36415; 76705; 80053; 81003; 83690; 85025; 96361; 96374; 99285; J2405; J7030

== ENCOUNTER 2022-06-14 12:33 | Day surgery (SDC) | payer OTHER, BC, MEDICAID, SELFPAY ==
[2022-06-06] MEDS: sodium chloride 0.9% 1,000 ML 30 ML IV (15:05)
[2022-06-12 10:02] VITALS: BMI 43.7
--- NOTE | 2022-06-12 10:16 | P.ANESASSM_ITS ---
Pre-Anesthetic Assessment Height/Weight: Height 1.65 m Weight 119.295 kg Preop Diagnosis: Right ovarian cyst Operation Date: 06/14/22 14:05 Proposed Procedures p Hysteroscopy, dilation and curettage with Myosure 16654,[id number],N92.1,N84.0(Not Applicable) - Mckinley Robles MD s Dilation And Curettage (D&C)(Not Applicable) - Mckinley Robles MD Familial anesthetic complications: PONV Social No alcohol and No tobacco Exam alert, oriented x 3, clear to auscultation bilaterally and regular rate & rhythm Airway Mallampati: Class III Dentition: full Pulmonary None reported CV/HEM None reported None reported Hepatic None reported GI Gastroesophageal Reflux Disease Metabolic Morbid Obesity Musc/skel Lower Back Pain Neuropsych None reported Anesthetic Plan ASA status: 2 Anesthesia: General Risk of > 500 ml blood loss (7ml/kg in children): No Medications/Allergies Home Medications Medication Instructions Recorded Confirmed Last Taken Type acetaminophen 500 mg tablet 1,000 mg PO Q6H PRN Pain 06/05/19 06/12/22 Unknown History (Tylenol Extra Strength) Allergies Allergy/AdvReac Type Severity Reaction Status Date / Time No Known Allergies Allergy Verified 06/06/22 17:24 [facility] Anesthesia Medical History 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 Obesity Obesity, morbid, BMI 40.0-49.9 Right ovarian cyst 06/10/2019: Right paratubal cyst with pathology showing serous cystadenoma. Surgical History History of laparoscopy (06/10/19) Laparoscopic excision of right paratubal cyst[place] [facility] [place]ology: Serous cystadenoma History of removal of retained hardware (03/20/12) Hardware in ring finger [place] Schwartz [place] [facility] [place] Status post surgery (02/14/12) Right ring finger fracture. Pin put in [place] Dr Schwartz [place] [facility] [place]. Family History Grandmother Diabetes maternal Hypertension MATERNAL Grandfather Hypertension MATERNAL Mother Hypertension Hyperlipidemia Denies family history of Colon cancer Ovarian cancer Clotting disorder Heart disease Breast cancer Anesthesia complication Bleeding disorder Uterine cancer Thyroid condition Stroke Social History Smoking and tobacco status: never smoked Second hand smoke exposure: No Smoking risk assessment/counseling performed?: No Alcohol intake: never Desire information about alcohol rehabilitation?: No Counseling given: No Desire information about substance/drug rehabilitation?: No Counseling given: No Adopted: No Caregiver/support person: No Lives independently: Yes Household members: spouse and children Marital status: Number of children: 1 service: No Current occupational status: employed History of recent travel: No Current gender identity: Female Female Reproductive History Date of last menstrual period: 03/16/22 Data Anesthesia Cardiac Studies: No Data to Display
[2022-06-12 10:23] LABS: Add Urine Microscopic? NO; Charge for UA Resulting for Rev
[2022-06-12 10:30] LABS: Basophils % 0.3 %; Eosinophils # 0.2 10^3/uL (0.0-0.8); Hematocrit 43.1 % (37.0-47.0); Hemoglobin 13.6 g/dL (11.5-15.3); Lymphocytes # 2.3 10^3/uL (0.8-4.8); Lymphocytes % 30.6 %; Mean Corpuscular HGB Conc 31.6 g/dL (30.0-36.0); Mean Corpuscular Hemoglobin 26.4 pg (28.0-34.0); Mean Corpuscular Volume 83.7 fl (81-99); Mean Platelet Volume 10.6 fL (7.4-10.4); Monocytes # 0.5 10^3/uL (0.2-0.9); Monocytes % 6.4 %; Neutrophils % 60.3 %; Nucleated Red Blood Cells % 0 %; Platelet Count 258 10^3/cmm (130-400); Red Blood Count 5.15 10^6/uL (4.1-5.3); Red Cell Distribution Width 15.3 % (12.1-15.1); White Blood Count 7.5 10^3/uL (4.0-10.0)
[2022-06-12 10:56] LABS: Bilirubin Urine Neg (Negative); Blood Urine Neg (Negative); Glucose Urine UA Norm (Normal); Ketones Urine Negative (Negative); Leukocyte Esterase Urine Negative (Negative); Nitrate Urine Negative (Negative); Protein Urine Neg (Negative); Specific Gravity, Urine 1.025 (1.005-1.030); Urine Appearance Clear (CLEAR); Urine Color Yellow (Yellow); Urobilinogen Urine Norm (Negative); pH Urine 5 (5-7)
[2022-06-12 14:41] LABS: OR HCG Qualitative Urine Negative (Negative)
[2022-06-14] VITALS (10 sets, daily range): BP systolic 119–151; BP diastolic 69–99; PULSE 79–116; RESP 18–30; TEMP 36.2–36.7; O2SAT 95–99
--- NOTE | 2022-06-14 13:00 | P.ANESUD_ITS ---
Pre-Anesthetic Update Pre-Anesthetic Assessment: Date of Surgery/Procedure: 06/14/22 Preop Conchis gnosis: Menorrhagia Proposed Procedure: Operation Date: 06/14/22 14:05 Proposed Procedures p Hysteroscopy, dilation and curettage with Myosure [id number],33492,N92.1,N84.0(Not Applicable) - Mckinley Robles MD s Dilation And Curettage (D&C)(Not Applicable) - Mckinley Robles MD Any changes to Pre-Anesthetic Assessment?: No Last Intake: Intake Last Liquid Date 06/13/22 Last Liquid Time 23:00 Last Solid Date 06/13/22 Last Solid Time 23:00 Vitals: Temperature 97.2 F L 06/14/22 12:45 Temperature Source Temporal Artery S can 06/14/22 12:45 Pulse Rate 79 06/14/22 12:45 Respiratory Rate 18 06/14/22 12:45 Blood Pressure 151/99 06/14/22 12:45 Blood Pressure Marielena n 116 06/14/22 12:45 Pulse Oximetry 99 06/14/22 12:45 Oxygen Delivery Me thod 06/14/22 12:46 Exam: Pre-Anes Outpt Exam: alert, oriented x 3, clear to auscultation bilaterally and regular rate & rhythm Cardiac Studies: No Data to Display
[2022-06-14 13:06] LABS: OR HCG Qualitative Urine Negative (Negative)
[2022-06-14] MEDS: sodium chloride 0.9% 500 ML IV (13:30)
[2022-06-14] MEDS: scopolamine 1.5 Patch 1 PATCH TRANSDERMA (13:35)
[2022-06-14] MEDS: ceFAZolin 3,000 MG in sodium chloride 0.9% (100 ml) 100 ML 200 MG IV (13:45)
--- NOTE | 2022-06-14 13:47 | W.PM.OPSUD ---
Surgery/Procedure H&P Update DATE OF PROCEDURE: June 14, 2022 DATE H&P PERFORMED: 06/12/22 H&P UPDATE INFORMATION: I have reviewed H&P completed within last 30 days, I have examined patient prior to procedure and No changes to prior documentation PREOP DIAGNOSIS: Menorrhagia PLANNED PROCEDURE: Operation Date: 06/14/22 14:05 Proposed Procedures p Hysteroscopy, dilation and curettage with Myosure [id number],39121,N92.1,N84.0(Not Applicable) - Mckinley Robles MD s Dilation And Curettage (D&C)(Not Applicable) - Mckinley Robles MD
[2022-06-14 14:07] LABS: Anion Gap 15.1 (5-19); Blood Urea Nitrogen 10 mg/dL (6-20); Calcium 9.5 mg/dL (8.5-10.5); Carbon Dioxide 26 mmol/L (22-29); Chloride 102 mmol/L (98-107); Glomerular Filtration Rate 76.9 mL/min (90-130); Glucose 95 mg/dL (65-115); Osmolality Calculated 287 mOsm/kg (285-295); Potassium 4.1 mmol/L (3.5-5.1); Sodium 139 mmol/L (136-145)
[2022-06-14] MEDS: lidocaine-epi 2% 20 mL INJ 9 ML INJECTION (14:13)
--- NOTE | 2022-06-14 14:24 | PM.OP ---
Operative Report Date of procedure: June 14, 2022 Pre-op diagnosis: Preop Diagnosis Menorrhagia Post-op diagnosis: Same as above Procedure done: Hysteroscopy with D&C via MyoSure Specimens removed/disposition: Endometrial curettings Surgeon: Mckinley Robles MD Estimated blood loss (mL): 5 IV fluids (mL): 200 Complications: None Findings: Irregular endometrium Procedure: After informed consent, the risks included but were not limited to bleeding, infection, injury to internal organs. The patient was counseled on a possible laparotomy and on the potential need for hysterectomy. The patient expressed understanding of the risks involved, all questions were answered, and the patient consented to the procedure. The patient was taken to the operating room where general anesthesia was administered. She was placed in the dorsal lithotomy position and prepped and draped in sterile fashion. A time out procedure was performed. The patient was examined under anesthesia and found to have a normal uterus with normal adnexa. A sterile weight speculum was placed in the vagina. The uterus was then gently sounded to 7 cm, and the cervix was dilated. The 0 degrees MyoSure hysteroscope was advanced gently to the uterine fundus while visualizing the monitor. Survey of the uterine cavity showed: Irregular endometrium, the fundus shows [normal proliferative endometrium]; left ostium was visualized, and lateral wall with proliferative endometrium; right ostium visualized, and lateral wall with proliferative endometrium; anterior and posterior carney are with proliferative endometrium; endocervical canal is normal. The MyoSure device was advanced and the direct visualization the endometrium was morcellated without complication. At the end of morcellation the fluid deficit was 200 mL and was estimated at approximately 150 mL were on the floor. There was minimal bleeding noted and the tenaculum removed with goad hemostasis noted. The patient tolerated the procedure well. The patient was taken to the recovery area in stable condition.
== END 2022-06-14 15:48 | disposition home or self-care (01) ==
PROVIDERS: Anesthesiology; PCP Nurse Practitioner; Visit Provider Obstetrics & Gynecology
PROC: 0UDB8ZZ Extraction of Endometrium, Via Natural or Artificial Opening Endoscopic (ICD-10-PCS; CPT 58558; principal; 2022-06-14 13:55)
PROC: (CPT 58120; 2022-06-14 13:55)
DX: N92.0 Excessive and frequent menstruation with regular cycle (principal); K21.9 Gastro-esophageal reflux disease without esophagitis; E66.01 Morbid (severe) obesity due to excess calories; Z68.41 Body mass index [BMI] 40.0-44.9, adult
CPT/HCPCS: 58558; 36415; 80048; 81003; 81025; 84703; 85025; 86850; 86900; 88305; J0690; J2250; J2704; J3010; J3490; J7030; J7040

== ENCOUNTER → 2022-07-10 15:16 | Outpatient (BNVA) | payer OTHER, BC, MEDICAID, SELFPAY | PROVIDERS: PCP Nurse Practitioner; Visit Provider Obstetrics & Gynecology | DX: N39.0 Urinary tract infection, site not specified (principal) | CPT/HCPCS: 84315; 87086 ==

== ENCOUNTER → 2022-07-12 11:00 | Outpatient (BNVA) | payer OTHER, BC, MEDICAID, SELFPAY | PROVIDERS: PCP Nurse Practitioner; Visit Provider Nurse Practitioner Family | DX: Z20.822 Contact with and (suspected) exposure to COVID-19 (principal) | CPT/HCPCS: 87426 ==

== ENCOUNTER → 2022-10-19 13:33 | Outpatient (BNVA) | payer OTHER, BC, MEDICAID, SELFPAY | PROVIDERS: PCP Nurse Practitioner; Visit Provider Nurse Practitioner Family | DX: E66.01 Morbid (severe) obesity due to excess calories (principal); E88.81 Metabolic syndrome and other insulin resistance; R73.9 Hyperglycemia, unspecified | CPT/HCPCS: 80053; 80061; 83036; 84443; 85025 ==

== ENCOUNTER → 2023-05-10 08:02 | Outpatient (BNVA) | payer MEDICAID, SELFPAY | PROVIDERS: PCP Nurse Practitioner; Visit Provider Obstetrics & Gynecology | DX: N92.1 Excessive and frequent menstruation with irregular cycle (principal) | CPT/HCPCS: 76830 ==

== ENCOUNTER → 2023-12-15 17:19 | Outpatient (BNVA) | payer MEDICAID, SELFPAY | PROVIDERS: PCP Nurse Practitioner; Visit Provider Emergency Medicine | DX: N92.0 Excessive and frequent menstruation with regular cycle (principal) | CPT/HCPCS: 85018 ==

== ENCOUNTER 2023-12-20 09:07 | Emergency (ER) | payer MEDICAID, SELFPAY ==
[2023-12-20 09:10] VITALS: BP 138/94; PULSE 98; RESP 18; TEMP 36.8; O2SAT 96; BMI 43.2
--- NOTE | 2023-12-20 09:11 | ECG_ITS ---
[facility] Test Date: 2023-12-20 Pat Name: Nimo Chavarria Department: Room: Gender: Female Critical Care Registered Nurse: : 2000 Requested By: Chaka Montoya Order Number: [id number] Marvel MD: Millicent Ruiz M.D. Measurements Intervals [place] Rate: 94 P: 23 AL: 168 QRS: 60 QRSD: 88 T: 24 QT: 340 QTc: 427 Interpretive Statements SINUS RHYTHM Compared to ECG 03/26/2014 15:18:37 No significant changes Electronically Signed On 12-21-2023 18:06:23 CDT by Millicent Ruiz M.D. [email or web address] hospitalYiBai-shopping/store/NU/[id number] f
--- NOTE | 2023-12-20 09:21 | XR_ITS ---
WS: [id number] Exam: XR chest 1V portable [id number] Date/Time of Exam: 12/20/2023 9:30 AM Reason For Exam: dyspnea/cough Comparison 05/09/2016. Findings: The lungs are clear and fully expanded. Costophrenic angles are sharp. No infiltrates. Bronchovascula r relief appears normal. Cardiac silhouette is unremarkable. Bony elements are intact. XR/XR chest 1V portable [id number] IMPRESSION: Unremarkable chest radiograph.
--- NOTE | 2023-12-20 09:35 | W.ED.EXTPRO ---
HPI - Extremity Problem General: Chief complaint: Extremity Problem,Nontraumatic Stated complaint: cp/left arm pain Time Seen by Provider: 12/20/23 09:16 History of Present Illness: 23-year-old female presents to the emergency room with complaints of left arm pain radiating into her chest no recent injury or fall. She recently started control pills for menorrhagia. She has been reporting heavy periods for the last 4 weeks. She was started on Sprintec with a initial dosing of 1 tablet 4 times a day for 2 days 1 tablet 3 times a day for 3 days then 1 tablet twice a day for 3 days and then starting a new pack. She is approximately 3 to 4 days into this process. She denies any shortness of breath she has no history of any arrhythmias. She has no history of any kind of coronary artery disease or other heart issues. Associated symptoms: Deny chest pain, fever(s) or rash Related Data Home Medications Medication Instructions Recorded Confirmed acetaminophen 325 mg capsule 325 mg PO Q4H PRN Fever Or Pain 12/20/23 12/20/23 Previous Rx's Medication Instructions Recorded norgestimate 0.25 mg-ethinyl 1 tab PO .COMPLEX #56 tabs 12/15/23 estradiol 35 mcg tablet (Sprintec (28)) ondansetron 8 mg disintegrating 8 mg PO Q8H PRN nausea and 12/15/23 tablet vomiting 5 days #15 tabs Allergies Allergy/AdvReac Type Severity Reaction Status Date / Time No Known Allergies Allergy Verified 12/15/23 16:08 Review of Systems Const: Denies: fever(s) or chills Card: Denies: chest pain Resp: Denies: dyspnea GI: Denies: abdominal pain : Reports: vaginal bleeding (Menorrhagia) and metrorrhagia; Denies: dysuria, urinary frequency or urinary urgency Musc: Denies: neck pain or back pain Skin/Breast: Denies: rash PFSH ED PFSH: Medical History Obesity, morbid, BMI 40.0-49.9 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 Surgical History History of hysteroscopy (06/14/22) Hysteroscopy, D&C via MyoSure performed by Dr. Robles at [facility], for AUB. Benign polyp and adenomyosis found. History of laparoscopy (06/10/19) Laparoscopic excision of right paratubal cyst. Performed by Dr. Pfeiffer at [facility] [place]. Pathology: Serous cystadenoma History of removal of retained hardware (03/20/12) Hardware in ring finger removed by Dr. Schwartz at [facility] [place] in [place], [place]. Status post surgery (02/14/12) Right ring finger fracture. Pin put in by Dr Schwartz at [facility] [place] in [place], [place]. Family History Grandmother Diabetes maternal Hypertension MATERNAL Grandfather Hypertension MATERNAL Mother Hypertension Hyperlipidemia Denies family history of Colon cancer Ovarian cancer Clotting disorder Heart disease Breast cancer Anesthesia complication Bleeding disorder Uterine cancer Thyroid disease Stroke Social History Smoking and tobacco/nicotine status: never used tobacco/nicotine Substance/Drug Use: never Do you think of yourself as: Straight/Heterosexual Physical Exam Const: COMMON NORMALS: no acute distress GENERAL APPEARANCE: cooperative and comfortable ORIENTATION/CONSCIOUSNESS: Yes awake, Yes oriented to person, Yes oriented to place and Yes oriented to time HENMT: COMMON NORMALS: normocephalic, atraumatic and hearing grossly normal bilaterally HEAD & SCALP: normocephalic and atraumatic Resp: COMMON NORMALS: normal respiratory effort, No retractions, No use of accessory muscles and clear to auscultation bilaterally AUSCULTATION: clear to auscultation bilaterally Cardio: COMMON NORMALS: regular rate, regular rhythm and No murmurs present (Cardio) RATE: regular rate RHYTHM: regular rhythm GI: COMMON NORMALS: Soft to palpation and No hepatosplenomegaly present AUSCULTATION: Yes normoactive bowel sounds PALPATION: Yes Soft to palpation, No Tenderness to palpation present (GI), No Guarding due to palpation present (GI) and Yes No hepatosplenomegaly present Extremity: COMMON NORMALS: normal to inspection, capillary refill normal, no clubbing, cyanosis or edema, no calf tenderness and no pedal edema Neuro: SENSORIUM/ORIENTATION: Yes oriented to person, Yes oriented to place and Yes oriented to time Skin: COMMON NORMALS: no rashes or lesions noted GENERAL SKIN EXAM: no rashes or lesions noted Course Vital Signs: Vital signs: Vital Signs Temperature 98.2 F 12/20/23 09:10 Pulse Rate 70 12/20/23 14:46 Respiratory Rate 18 12/20/23 14:46 Blood Pressure 138/90 12/20/23 14:46 Pulse Oximetry 99 12/20/23 14:46 Oxygen Delivery Me thod Room Air 12/20/23 09:10 MDM - Extremity (Nontraumatic) Medical Decision Making Labs and imaging reviewed. EKG did not show any significant maladies troponins were normal a relatively low index suspicion for acute coronary syndrome given her age and risk factors EKG does not show any acute changes. She recently was started on a accelerated dose of oral contraceptives to help with her menorrhagia. This puts her at an increased risk for PE but CTA was negative her vital signs normal. Her respiratory rate and oxygen sat were also normal. Will discharge the patient home have her follow-up with her primary care doctor return if she has further problems. Medical Records I reviewed the patient's medical records. Lab Data I reviewed the patient's lab results. 12/20/23 09:35 12/20/23 09:35 Radiology Impressions Chest X-Ray 12/20/23 09:21 IMPRESSION: Unremarkable chest radiograph. Chest CTA 12/20/23 11:04 IMPRESSION: 1. No evidence of pulmonary embolus 2. Shallow inspiration with bibasal atelectasis Laboratory Results WBC 5.73 10^3/uL (3.29-11.43) 12/20/23 09:35 RBC 4.05 10^6/uL (3.85-5.65) 12/20/23 09:35 Hgb 10.70 g/dL (11.27-16.99) L 12/20/23 09:35 Hct 33.3 % (36-47) L 12/20/23 09:35 MCV 82.2 fl (85-98) L 12/20/23 09:35 MCH 26.4 pg (27-33) L 12/20/23 09:35 MCHC 32.1 g/dL (30-55) 12/20/23 09:35 RDW 16.3 % (12.1-15.1) H 12/20/23 09:35 Plt Count 171 10^3/cmm (157-399) 12/20/23 09:35 MPV 9.9 fL (7.4-10.4) 12/20/23 09:35 Neut % (Auto) 64.4 % 12/20/23 09:35 Lymph % (Auto) 25.7 % 12/20/23 09:35 [place] % (Auto) 7.9 % 12/20/23 09:35 Eos % (Auto) 1.2 % 12/20/23 09:35 Baso % (Auto) 0.3 % 12/20/23 09:35 Neut # (Auto) 3.69 10^3/uL (1.8-7.7) 12/20/23 09:35 Lymph # (Auto) 1.5 10^3/uL (0.8-4.8) 12/20/23 09:35 [place] # (Auto) 0.5 10^3/uL (0.2-0.9) 12/20/23 09:35 Eos # (Auto) 0.1 10^3/uL (0.0-0.8) 12/20/23 09:35 Baso # (Auto) 0.0 10^3/uL (0.0-0.1) 12/20/23 09:35 Nucleated RBC % (auto) 0 % 12/20/23 09:35 Nucleated RBCs # 0.0 /100WBC 12/20/23 09:35 Sodium 139 mmol/L (136-145) 12/20/23 09:35 Potassium 4.0 mmol/L (3.5-5.1) 12/20/23 09:35 Chloride 103 mmol/L (98-107) 12/20/23 09:35 Carbon Dioxide 23 mmol/L (22-29) 12/20/23 09:35 Anion Gap 17.0 (5-19) 12/20/23 09:35 BUN 8 mg/dL (6-20) 12/20/23 09:35 Creatinine 0.8 mg/dL (0.5-0.9) 12/20/23 09:35 GFR Calculation 87.4 mL/min (90-130) L 12/20/23 09:35 Glucose 109 mg/dL (65-115) 12/20/23 09:35 Calculated Osmolality 287 mOsm/kg (285-295) 12/20/23 09:35 Calcium 9.1 mg/dL (8.5-10.5) 12/20/23 09:35 Total Bilirubin 0.3 mg/dL (0.15-1.2) 12/20/23 09:35 AST 15 U/L (0-32) 12/20/23 09:35 ALT 15 U/L (0-33) 12/20/23 09:35 Alkaline Phosphatase 79 U/L (35-105) 12/20/23 09:35 Troponin T Baseline < 6 ng/L (0-10) 12/20/23 09:35 Troponin T 120 Minute 6.00 ng/L (0-10) 12/20/23 13:25 Delta Troponin T 0.53148 ABS# (0-10) 12/20/23 13:25 Total Protein 7.2 g/dL (6.6-8.7) 12/20/23 09:35 Albumin 4.1 g/dL (3.5-5.2) 12/20/23 09:35 Globulin 3.1 g/dL (1.3-4.6) 12/20/23 09:35 All radiology interpretation(s) finalized by discharge Discharge Plan Discharge Patient Disposition: Home Clinical Impression: Atypical chest pain Condition: Stable Prescriptions: No Action norgestimate-ethinyl estradiol [Sprintec (28)] 0.25-35 mg-mcg tablet 1 tab PO .COMPLEX Qty: 56 0RF Rx Instructions: 1 tab po qid for 2d, then 1 tab tid for 3d, then 1 tab bid for 2d, then skip placebo pills, and then start new pack 1 poqd for 21days ondansetron 8 mg tablet,disintegrating 8 mg PO Q8H PRN (Reason: nausea and vomiting) 5 Days Qty: 15 0RF acetaminophen 325 mg capsule 325 mg PO Q4H PRN (Reason: Fever Or Pain) Discharge Orders: Discharge ED (Routine); Ordered 12/20/23 Ordered By: Chaka Jarrett Referrals: Naveen Huerta, EGG CASER-C [Nurse Practitioner] - Discharge Diet: Usual diet Discharge Activity: Increase activity as tolerated Patient Instructions: Opioid Safety, Pain Management Activity Restrictions/Additional Instructions: Thank you for choosing [facility] for your healthcare needs today. It is very important that you follow up as instructed or that you return to the Emergency Department should you have concerns or if your condition changes or worsens in any way. You were seen in the emergency room for chest discomfort. Evaluation showed there is no evidence of acute coronary syndrome no evidence of pneumonia pneumothorax or pulmonary embolism. Recommend that you follow-up with your primary care doctor if symptoms persist or worsen. You can use Tylenol and ibuprofen as needed. Coding Level of Care Code ED Retail Product Advisor for Ana Echeverria
[2023-12-20 09:41] LABS: Basophils % 0.3 %; Eosinophils # 0.1 10^3/uL (0.0-0.8); Eosinophils % 1.2 %; Hematocrit 33.3 % (36-47); Lymphocytes # 1.5 10^3/uL (0.8-4.8); Lymphocytes % 25.7 %; Mean Corpuscular HGB Conc 32.1 g/dL (30-55); Mean Corpuscular Hemoglobin 26.4 pg (27-33); Mean Corpuscular Volume 82.2 fl (85-98); Mean Platelet Volume 9.9 fL (7.4-10.4); Monocytes # 0.5 10^3/uL (0.2-0.9); Monocytes % 7.9 %; Neutrophils # 3.69 10^3/uL (1.8-7.7); Neutrophils % 64.4 %; Nucleated Red Blood Cells % 0 %; Platelet Count 171 10^3/cmm (157-399); Red Blood Count 4.05 10^6/uL (3.85-5.65); Red Cell Distribution Width 16.3 % (12.1-15.1); White Blood Count 5.73 10^3/uL (3.29-11.43)
[2023-12-20 09:59] LABS: Alanine Aminotransferase 15 U/L (0-33); Albumin Level 4.1 g/dL (3.5-5.2); Alkaline Phosphatase 79 U/L (35-105); Aspartate Amino Transferase 15 U/L (0-32); Blood Urea Nitrogen 8 mg/dL (6-20); Calcium 9.1 mg/dL (8.5-10.5); Carbon Dioxide 23 mmol/L (22-29); Chloride 103 mmol/L (98-107); Globulin 3.1 g/dL (1.3-4.6); Glomerular Filtration Rate 87.4 mL/min (90-130); Glucose 109 mg/dL (65-115); Osmolality Calculated 287 mOsm/kg (285-295); Sodium 139 mmol/L (136-145); Total Bilirubin 0.3 mg/dL (0.15-1.2); Total Protein 7.2 g/dL (6.6-8.7)
--- NOTE | 2023-12-20 11:04 | ECG_ITS ---
[facility] Test Date: 2023-12-20 Pat Name: Nimo Chavarria Department: Room: Gender: Female Experimental Welder: : 2000 Requested By: Chaka Montoya Order Number: [id number] Marvel MD: Millicent Ruiz M.D. Measurements Intervals [place] Rate: 67 P: 21 TN: 182 QRS: 64 QRSD: 114 T: 27 QT: 376 QTc: 398 Interpretive Statements SINUS RHYTHM MODERATE INTRAVENTRICULAR CONDUCTION DELAY [110+ ms QRS DURATION] Compared to ECG 12/20/2023 09:11:54 Intraventricular conduction delay now present Electronically Signed On 12-21-2023 18:06:50 CDT by Millicent Ruiz M.D. [email or web address] [employer]/store/[id number]
--- NOTE | 2023-12-20 11:04 | CT_ITS ---
WS: [id number] CTA OF THE CHEST WITH PULMONARY EMBOLISM PROTOCOL TECHNIQUE: High-resolution contrast enhanced CTA of the chest with coronal and sagittal reformatted i martinezs with pulmonary embolism protocol. MIP images are also reviewed. CLINICAL INFORMATION: chest pain COMPARISON: None. DLP: 485.[address] scans at [facility] use at least one of these dose optimization techniques: automated e xposure control; mA and/or kV adjustment per patient size (includes targeted exams where dose is matc hed to clinical indication); or iterative reconstruction. FINDINGS: Proximal main pulmonary arteries are normal. Normal segmental and subsegmental pulmonary ar teries. No evidence of pulmonary embolus. Shallow inspiration. Bibasilar atelectasis. Azygos fissure. No focal consolidation or pleural fluid. RIGHT adrenal gland is normal. Small nodule LEFT adrenal gland likely adenoma. Hepatomegaly with diff use fatty infiltration. Splenomegaly. Spleen granulomas. Normal GE junction. Celiac and SMA are paten t in the upper abdomen. Mild thoracic curve. Normal caliber thoracic aorta. No mediastinal or hilar lymphadenopathy. CT/CT angio chest PE protcl [id number] IMPRESSION: 1. No evidence of pulmonary embolus 2. Shallow inspiration with bibasal atelectasis
[2023-12-20] MEDS: iohexol 350 mg/mL 500 mL Btl (per mL) IV (12:03)
--- NOTE | 2023-12-20 12:53 | ECG_ITS ---
[facility] Test Date: 2023-12-20 Pat Name: Nimo Chavarria Department: Room: Gender: Female Manager Educational: : 2000 Requested By: Chaka Montoya Order Number: [id number] Marvel MD: Millicent Ruiz M.D. Measurements Intervals [place] Rate: 68 P: 21 FL: 185 QRS: 60 QRSD: 85 T: 22 QT: 367 QTc: 391 Interpretive Statements SINUS RHYTHM WITH SINUS ARRHYTHMIA Compared to ECG 12/20/2023 12:17:05 Intraventricular conduction delay no longer present Electronically Signed On 12-21-2023 18:07:03 CDT by Millicent Ruiz M.D. [email or web address] memorial hospitalArtsyeast [facility].Naverus/store/OM/[id number]
[2023-12-20 13:17] LABS: Troponin(5th) Baseline < 6 ng/L (0-10)
[2023-12-20 13:53] LABS: Troponin 5 2HR Delta 0.00001 ABS# (0-10)
[2023-12-20 14:46] VITALS: BP 138/90; PULSE 70; RESP 18; O2SAT 99
== END 2023-12-20 14:47 | disposition home or self-care (01) ==
PROVIDERS: Emergency Provider Family Medicine; PCP Nurse Practitioner Family
DX: R07.89 Other chest pain (principal); Z14.1 Cystic fibrosis carrier
CPT/HCPCS: 36415; 71045; 71275; 80053; 84484; 85025; 93005; 99285; Q9967

== ENCOUNTER → 2024-02-13 12:01 | Outpatient (BNVA) | payer MEDICAID, SELFPAY | PROVIDERS: PCP Nurse Practitioner Family; Visit Provider Obstetrics & Gynecology | DX: N92.6 Irregular menstruation, unspecified (principal); N85.8 Other specified noninflammatory disorders of uterus | CPT/HCPCS: 76830 ==

== ENCOUNTER 2024-03-04 18:33 | Emergency (ER) | payer MEDICAID, SELFPAY ==
[2024-03-04 19:10] VITALS: BP 120/81; PULSE 95; RESP 17; TEMP 37.1; O2SAT 97; BMI 44.6
--- NOTE | 2024-03-04 20:06 | ED_ITS ---
HPI - Abdominal Pain 2 General: Chief Complaint: Abdominal Pain Stated Complaint: female problems Time Seen by Provider: 03/04/24 19:48 History of Present Illness: 23-year-old female who presents to the mergency room with right lower quadrant abdominal pain. She gone to urgent care thinking that she had ruptured an ovarian cyst which she has done in the past but urgent care was concerned he might be having an appendicitis so they sent her to the emergency room. She has had some nausea. No fever. Pain is worse with movement and with palpation. Been going on since yesterday. No known fever. No diarrhea. No chest pain. No shortness. Of breath Related Data Date of Last Menstrual Period: 02/12/24 Previous Rx's Medication Instructions Recorded ibuprofen 800 mg tablet 800 mg PO TID #90 tabs 02/06/24 norgestimate 0.25 mg-ethinyl 1 tab PO DAILY #84 tabs 02/13/24 estradiol 35 mcg tablet (Sprintec (28)) diclofenac sodium 50 mg 50 mg PO BID PRN pain #14 tabs 03/04/24 tablet,delayed release Allergies Allergy/AdvReac Type Severity Reaction Status Date / Time No Known Allergies Allergy Verified 03/04/24 19:18 Review of Systems 2 Narrative: Constitutional symptoms: Negative except as documented in HPI. Skin symptoms: Negative except as documented in HPI. Eye symptoms: Negative except as documented in HPI. ENMT symptoms: Negative except as documented in HPI. Respiratory symptoms: Negative except as documented in HPI. Cardiovascular symptoms: Negative except as documented in HPI. Gastrointestinal symptoms: Negative except as documented in HPI. Genitourinary symptoms: Negative except as documented in HPI. Musculoskeletal symptoms: Negative except as documented in HPI. Neurologic symptoms: Negative except as documented in HPI. Psychiatric symptoms: Negative except as documented in HPI. Endocrine symptoms: Negative except as documented in HPI. 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 Surgical History History of hysteroscopy (06/14/22) Hysteroscopy, D&C via MyoSure performed by Dr. Robles at [facility], for AUB. Benign polyp and adenomyosis found. History of laparoscopy (06/10/19) Laparoscopic excision of right paratubal cyst[place] [facility] [place]ology: Serous cystadenoma History of removal of retained hardware (03/20/12) Hardware in ring finger [place] [facility] [place]. Status post surgery (02/14/12) Right ring finger fracture. Pin put in [place] Dr Schwartz [place] [facility] [place]. Family History Grandmother Diabetes maternal Hypertension MATERNAL Grandfather Hypertension MATERNAL Mother Hypertension Hyperlipidemia Denies family history of Colon cancer Ovarian cancer Clotting disorder Heart disease Breast cancer Anesthesia complication Bleeding disorder Uterine cancer Thyroid disease Stroke Social History Smoking and tobacco/nicotine status: never used tobacco/nicotine Substance/Drug Use: never Do you think of yourself as: Straight/Heterosexual Female Reproductive History: Date of last menstrual period: 02/12/24 Physical Exam 2 Narrative: EXAM NARRATIVE: General: Alert, no acute distress. Skin: Warm, dry. Head: Normocephalic, atraumatic. Neck: Supple, trachea midline. Eye: Extraocular movements are intact. Ears, nose, mouth and throat: mucosa moist. Cardiovascular: Regular, Normal peripheral perfusion. Respiratory: Lungs are clear to auscultation, respirations are non-labored, breath sounds are equal, Symmetrical chest wall expansion. Gastrointestinal: Soft, right lower quadrant/adnexal tenderness tenderness, Non distended Musculoskeletal: Normal ROM, no deformity. Neurological: Alert and oriented, No focal neurological deficit observed. Psychiatric: Cooperative, appropriate mood & affect. Course 2 Vital Signs: Vital signs: Vital Signs Temperature 98.8 F 03/04/24 19:10 Pulse Rate 79 03/04/24 22:18 Respiratory Rate 17 03/04/24 19:10 Blood Pressure 120/89 03/04/24 22:18 Pulse Oximetry 100 03/04/24 22:18 Oxygen Delivery Me thod Room Air 03/04/24 21:48 MDM - Abdominal Pain Medical Decision Making Medical decision making: Differential diagnosis for this patient with right lower quadrant abdominal pain including but not limited to and based on the above HPI, review of systems and physical exam: Ureterolithiasis. Urinary tract infection. Appendicitis. colitis. small bowel obstruction. Crohn's flare. Pancreatitis. Cholelithiasis or cholecystitis. Hepatitis. Diverticulitis. Constipation. ovarian cyst. ovarian torsion Workup: Orders were placed to evaluate differential diagnosis based on the above differential, HPI and exam: Lab Review: Laboratory results were reviewed and interpreted by myself the emergency room physician. Lab work is fairly unremarkable. No leukocytosis. No anemia. No renal failure. Liver enzymes are normal. Lactate is normal. Urinalysis is negative for infection. test is negative. CT of the abdomen and pelvis with contrast: No acute abnormalities. This was reviewed and interpreted by myself the emergency room physician. I also reviewed the radiology report. I reviewed the patient's medical record Reexamination: Patient remained stable. No increased work of breathing. No altered mental status. No focal motor deficits. We discussed this likely is related to an ovarian cyst as she has had this in the past and the pain is quite similar. She was sent to rule out appendicitis which we have done. Assessment and plan: Abdominal pain ?Toradol the emergency room prior to discharge - Discharged home - Discussed findings and plan with patient. Answered any questions. - All laboratory values were reviewed and interpreted personally by myself, the ER physician - All imaging was reviewed and interpreted personally by myself, the ER physician. - Evaluation and treatment of this problem were appropriate in the emergency setting Lab Data 03/04/24 20:06 03/04/24 20:06 Labs/Radiology: Radiology Impressions Abdomen/Pelvis CT 03/04/24 20:34 IMPRESSION: 1. No acute findings within the abdomen or pelvis. 2. Mild splenomegaly with chronic granulomatous calcifications, stable. 3. Mild hepatomegaly with diffuse fatty infiltration, stable. Laboratory Results WBC 8.20 10^3/uL (3.29-11.43) 03/04/24 20:06 RBC 4.66 10^6/uL (3.85-5.65) 03/04/24 20:06 Hgb 11.20 g/dL (11.27-16.99) L 03/04/24 20:06 Hct 36.7 % (36-47) 03/04/24 20:06 MCV 78.8 fl (85-98) L 03/04/24 20:06 MCH 24.0 pg (27-33) L 03/04/24 20:06 MCHC 30.5 g/dL (30-55) 03/04/24 20:06 RDW 14.3 % (12.1-15.1) 03/04/24 20:06 Plt Count 295 10^3/cmm (157-399) 03/04/24 20:06 MPV 10.4 fL (7.4-10.4) 03/04/24 20:06 Neut % (Auto) 67.5 % 03/04/24 20:06 Lymph % (Auto) 25.4 % 03/04/24 20:06 [place] % (Auto) 5.9 % 03/04/24 20:06 Eos % (Auto) 0.6 % 03/04/24 20:06 Baso % (Auto) 0.4 % 03/04/24 20:06 Neut # (Auto) 5.54 10^3/uL (1.8-7.7) 03/04/24 20:06 Lymph # (Auto) 2.1 10^3/uL (0.8-4.8) 03/04/24 20:06 [place] # (Auto) 0.5 10^3/uL (0.2-0.9) 03/04/24 20:06 Eos # (Auto) 0.1 10^3/uL (0.0-0.8) 03/04/24 20:06 Baso # (Auto) 0.0 10^3/uL (0.0-0.1) 03/04/24 20:06 Nucleated RBC % (auto) 0 % 03/04/24 20:06 Nucleated RBCs # 0.0 /100WBC 03/04/24 20:06 Sodium 139 mmol/L (136-145) 03/04/24 20:06 Potassium 3.6 mmol/L (3.5-5.1) 03/04/24 20:06 Chloride 102 mmol/L (98-107) 03/04/24 20:06 Carbon Dioxide 24 mmol/L (22-29) 03/04/24 20:06 Anion Gap 16.6 (5-19) 03/04/24 20:06 BUN 11 mg/dL (6-20) 03/04/24 20:06 Creatinine 0.9 mg/dL (0.5-0.9) 03/04/24 20:06 GFR Calculation 76.3 mL/min (90-130) L 03/04/24 20:06 Glucose 116 mg/dL (65-115) H 03/04/24 20:06 Calculated Osmolality 288 mOsm/kg (285-295) 03/04/24 20:06 Lactic Acid 2.1 mmol/L (0.5-2.2) 03/04/24 20:06 Lactic Acid (Sepsis) 1.6 mmol/L (0.5-2.2) 03/04/24 22:27 Calcium 9.3 mg/dL (8.5-10.5) 03/04/24 20:06 Total Bilirubin 0.2 mg/dL (0.15-1.2) 03/04/24 20:06 AST 13 U/L (0-32) 03/04/24 20:06 ALT 12 U/L (0-33) 03/04/24 20:06 Alkaline Phosphatase 70 U/L (35-105) 03/04/24 20:06 C-Reactive Protein 14.3 mg/L (0.0-4.9) H 03/04/24 20:06 Total Protein 6.8 g/dL (6.6-8.7) 03/04/24 20:06 Albumin 4.2 g/dL (3.5-5.2) 03/04/24 20:06 Globulin 2.6 g/dL (1.3-4.6) 03/04/24 20:06 Lipase 23 U/L (13-60) 03/04/24 20:06 HCG, Qual Negative (Negative) 03/04/24 20: Urine Color Yellow (Yellow) 03/04/24 20:15 Urine Appearance Clear (CLEAR) 03/04/24 20:15 Urine pH 5.5 (5-7) 03/04/24 20:15 Ur Specific [place] 1.008 (1.005-1.030) 03/04/24 20:15 Urine Protein Negative (Negative) 03/04/24 20: Urine Glucose (UA) Negative (Normal) 03/04/24 20:15 Urine Ketones Negative (Negative) 03/04/24 20:15 Urine Blood Negative (Negative) 03/04/24 20:15 Urine Nitrate Negative (Negative) 03/04/24 20:15 Urine Bilirubin Negative (Negative) 03/04/24 20:15 Urine Urobilinogen 0.2 mg/dL (Negative) 03/04/24 20:15 Ur Leukocyte Esterase Negative (Negative) 03/04/24 20:15 Urine RBC 0-2 /hpf (0-2) 03/04/24 20:15 Urine WBC 0-5 /hpf (0-5) 03/04/24 20:15 Ur Squamous Epith Cells 0-5 /hpf (0-5) 03/04/24 20:15 Amorphous Sediment Not Reportable 03/04/24 20:15 Urine Bacteria 1+ /hpf (NONE) H 03/04/24 20:15 Hyaline Casts 0-4 /lpf H 03/04/24 20:15 All radiology interpretation(s) finalized by discharge Discharge Plan Discharge Patient Disposition: Home Clinical Impression: Abdominal pain Condition: Stable Prescriptions: New diclofenac sodium 50 mg tablet,delayed release (DR/EC) 50 mg PO BID PRN (Reason: pain) Qty: 14 0RF No Action ibuprofen 800 mg tablet 800 mg PO TID Qty: 90 3RF norgestimate-ethinyl estradiol [Sprintec (28)] 0.25-35 mg-mcg tablet 1 tab PO DAILY Qty: 84 0RF Discharge Orders: Discharge ED (Routine); Ordered 03/04/24 Ordered By: Rachael Elise Referrals: Jenni Sal FNP-C [Primary Care Provider] - Discharge Diet: Usual diet Discharge Activity: Increase activity as tolerated Patient Instructions: Abdominal Pain (ED), Opioid Safety, Pain Management Activity Restrictions/Additional Instructions: Thank you for choosing [facility] for your healthcare needs today. Please realize this is an emergency room and that we are providing you with a medical screening exam and this may not be complete and all inclusive of all the testing and or work up that you may need to determine your ailment or severity of your illness. You have been screened and evaluated and felt safe for discharge. Health conditions do change or evolve sometimes and as such it is important that you follow up with your Primary Doctor to be re checked, 3-5 days is a general good time frame for follow up. You are always welcome to return to the ED for re assessment if your symptoms are worsening or you have new concerns Coding Level of Care Code ED Bender Machine Operator for Ana Echeverria
[2024-03-04 20:14] LABS: Basophils % 0.4 %; Eosinophils # 0.1 10^3/uL (0.0-0.8); Eosinophils % 0.6 %; Hematocrit 36.7 % (36-47); Lymphocytes # 2.1 10^3/uL (0.8-4.8); Lymphocytes % 25.4 %; Mean Corpuscular HGB Conc 30.5 g/dL (30-55); Mean Corpuscular Volume 78.8 fl (85-98); Mean Platelet Volume 10.4 fL (7.4-10.4); Monocytes # 0.5 10^3/uL (0.2-0.9); Monocytes % 5.9 %; Neutrophils # 5.54 10^3/uL (1.8-7.7); Neutrophils % 67.5 %; Nucleated Red Blood Cells % 0 %; Platelet Count 295 10^3/cmm (157-399); Red Blood Count 4.66 10^6/uL (3.85-5.65); Red Cell Distribution Width 14.3 % (12.1-15.1)
[2024-03-04 20:24] LABS: Bilirubin Urine Negative (Negative); Blood Urine Negative (Negative); Glucose Urine UA Negative (Normal); Ketones Urine Negative (Negative); Leukocyte Esterase Urine Negative (Negative); Nitrate Urine Negative (Negative); Protein Urine Negative (Negative); Specific Gravity, Urine 1.008 (1.005-1.030); Urine Appearance Clear (CLEAR); Urine Color Yellow (Yellow); Urobilinogen Urine 0.2 mg/dL (Negative); pH Urine 5.5 (5-7)
[2024-03-04 20:26] LABS: Bacteria Urine 1+ /hpf; Hyaline Casts Urine 0-4 /lpf; RBC Urine 0-2 /hpf (0-2); Squamous Epithelial Cell Urine 0-5 /hpf (0-5); WBC Urine 0-5 /hpf (0-5)
[2024-03-04 20:28] LABS: HCG, Serum Qual Negative (Negative)
[2024-03-04 20:32] LABS: Alanine Aminotransferase 12 U/L (0-33); Albumin Level 4.2 g/dL (3.5-5.2); Alkaline Phosphatase 70 U/L (35-105); Anion Gap 16.6 (5-19); Aspartate Amino Transferase 13 U/L (0-32); Blood Urea Nitrogen 11 mg/dL (6-20); C Reactive Protein 14.3 mg/L (0.0-4.9); Calcium 9.3 mg/dL (8.5-10.5); Carbon Dioxide 24 mmol/L (22-29); Chloride 102 mmol/L (98-107); Creatinine Clr Calc Pharmacy 124.9408; Globulin 2.6 g/dL (1.3-4.6); Glomerular Filtration Rate 76.3 mL/min (90-130); Glucose 116 mg/dL (65-115); Lipase 23 U/L (13-60); Osmolality Calculated 288 mOsm/kg (285-295); Potassium 3.6 mmol/L (3.5-5.1); Sodium 139 mmol/L (136-145); Total Bilirubin 0.2 mg/dL (0.15-1.2); Total Protein 6.8 g/dL (6.6-8.7)
[2024-03-04 20:33] LABS: Lactic Sepsis W/Reflex 2.1 mmol/L (0.5-2.2)
--- NOTE | 2024-03-04 20:34 | CTR_ITS ---
PROCEDURE INFORMATION: Exam: CT Abdomen And Pelvis With Contrast Exam date and time: 03/04/2024 9:33 PM Age: 23 years old Clinical indication: Other: Rlq pain; Additional info: Rlq abdominal pain TECHNIQUE: Imaging protocol: Computed tomography of the abdomen and pelvis with contrast. Radiation optimization: All CT scans at this facility use at least one of these dose optimization techniques: automated exposure control; mA and/or kV adjustment per patient size (includes targeted exams where dose is matched to clinical indication); or iterative reconstruction. Contrast material: OMNI 350; Contrast volume: 100 ml; Contrast route: INTRAVENOUS (IV); COMPARISON: CT abdomen pelvis w con* [id number] 10/11/2020 10:58 PM RADIATION DOSE METRICS: Total DLP (mGy-cm): 1141.6 FINDINGS: Lungs: Lung bases are clear. Liver: Liver is mildly enlarged with diffuse fatty infiltration present. Gallbladder and biliary ducts: Normal. No calcified stones. No ductal dilation. Pancreas: Unremarkable. Main pancreatic duct is not significantly dilated. Spleen: Spleen is at least mildly enlarged measuring 14 cm in greatest dimension with scattered chronic granulomatous calcifications unchanged. Adrenal glands: Normal. No mass. Kidneys and ureters: Kidneys are unremarkable. There is no hydronephrosis. Assessment for renal calculi is somewhat limited as the collecting system is completely opacify with contrast. Stomach and bowel: Unremarkable. No obstruction. No mucosal thickening. Appendix: No evidence of acute appendicitis. Intraperitoneal space: Unremarkable. No free air. No significant fluid collection. Vasculature: Unremarkable. No abdominal aortic aneurysm. Lymph nodes: Unremarkable. No enlarged lymph nodes. Urinary bladder: Unremarkable as visualized. Reproductive: Unremarkable as visualized. Bones/joints: Unremarkable. No acute fracture. Soft tissues: Unremarkable. CT/CT abdomen pelvis w con* [id number] IMPRESSION: 1. No acute findings within the abdomen or pelvis. 2. Mild splenomegaly with chronic granulomatous calcifications, stable. 3. Mild hepatomegaly with diffuse fatty infiltration, stable.
[2024-03-04] MEDS: iohexol 350 mg/mL 500 mL Btl (per mL) IV (21:34)
[2024-03-04 21:48] VITALS: BP 128/73; PULSE 92; O2SAT 94
[2024-03-04 21:58] LABS: Reflex Lactate Order REFLEX LACTIC ORDERD
[2024-03-04 22:18] VITALS: BP 120/89; PULSE 79; O2SAT 100
[2024-03-04 22:50] LABS: Lactic Acid level (Lactate) 1.6 mmol/L (0.5-2.2)
[2024-03-04 23:16] VITALS: BP 148/72; PULSE 81; RESP 16; O2SAT 99
[2024-03-04] MEDS: ketorolac 30 mg/mL INJ IVP (23:16)
== END 2024-03-04 23:17 | disposition home or self-care (01) ==
PROVIDERS: Emergency Provider Emergency Medicine; PCP Nurse Practitioner Family
DX: R10.31 Right lower quadrant pain (principal); R16.1 Splenomegaly, not elsewhere classified; R16.0 Hepatomegaly, not elsewhere classified
CPT/HCPCS: 36415; 74177; 80053; 81000; 81001; 83605; 83690; 84703; 85025; 86140; 96374; 99285; J1885

== ENCOUNTER → 2024-05-27 09:36 | Outpatient (BNVA) | payer MEDICAID, SELFPAY | PROVIDERS: PCP Nurse Practitioner Family; Visit Provider Nurse Practitioner | DX: E55.9 Vitamin D deficiency, unspecified (principal); R53.83 Other fatigue; Z13.6 Encounter for screening for cardiovascular disorders | CPT/HCPCS: 80053; 80061; 82306; 82607; 84443; 85025 ==

== ENCOUNTER → 2024-06-12 16:17 | Outpatient (BNVA) | payer MEDICAID, SELFPAY | PROVIDERS: PCP Nurse Practitioner Family; Visit Provider Nurse Practitioner | DX: N76.0 Acute vaginitis (principal); B96.89 Other specified bacterial agents as the cause of diseases classified elsewhere | CPT/HCPCS: 87070; 87205 ==

== ENCOUNTER 2024-08-10 05:24 | Emergency (ER) | payer MEDICAID, SELFPAY ==
[2024-08-10 05:28] VITALS: BP 134/74; PULSE 90; RESP 16; TEMP 35.9; O2SAT 98; BMI 44.9
--- NOTE | 2024-08-10 05:49 | W.ED.ABDPA2 ---
Documented by User: Norman Serrano MD 08/10/24 05:51 HPI - Abdominal Pain General: Chief Complaint: Abdominal Pain Stated Complaint: Upper ABD Pain goes into back N/V/D Time Seen by Provider: 08/10/24 05:49 Source: patient Mode of arrival: ambulatory Limitations: no limitations History of Present Illness: 24-year-old female states she been having abdominal pain over the last day. States her pains been in the epigastric region after she ate a sandwich. She had some nausea she denies any fever states the pain sharp rates it a 5 out of 10. Associated Symptoms: Denies chills, diarrhea, dysuria, fever(s), nausea and vomiting Related Data Date of Last Menstrual Period: 06/07/24 Previous Rx's ?Medication ?Instructions ?Recorded fluoxetine 10 mg capsule (Prozac) 10 mg PO DAILY #30 caps 05/27/24 cholecalciferol (vitamin D3) 125 125 mcg PO DAILY #30 caps 05/28/24 mcg (5,000 unit) capsule topiramate 50 mg tablet (Topamax) 50 mg PO BID #60 tabs 06/12/24 hydrocodone 5 mg-acetaminophen 325 1 tab PO Q6H PRN pain #20 tabs 08/10/24 mg tablet pantoprazole 40 mg tablet,delayed 40 mg PO BID 10 days #40 tabs 08/10/24 release promethazine 25 mg tablet 25 mg PO Q6H PRN nausea and 08/10/24 vomiting #20 tabs Allergies Allergy/AdvReac Type Severity Reaction Status Date / Time No Known Allergies Allergy Verified 06/12/24 15:56 Review of Systems Const: Denies: fever(s), chills, body aches or change in appetite ENMT: Denies: throat pain or dental pain Card: Denies: chest pain Resp: Denies: dyspnea GI: Reports: abdominal pain; Denies: nausea, vomiting or diarrhea : Denies: dysuria Musc: Denies: neck pain or back pain Skin/Breast: Denies: rash Neuro: Denies: headache(s) PFS ED PFSH: Medical History Obesity, morbid, BMI 40.0-49.9 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 Surgical History History of hysteroscopy (06/14/22) Hysteroscopy, D&C via MyoSure performed by Dr. Robles at [facility], for AUB. Benign polyp and adenomyosis found. History of laparoscopy (06/10/19) Laparoscopic excision of right paratubal cyst. Performed by Dr. Pfeiffer at [facility]. Pathology: Serous cystadenoma History of removal of retained hardware (03/20/12) Hardware in ring finger removed by Dr. Schwartz at [facility] in [place], [place]. Status post surgery (02/14/12) Right ring finger fracture. Pin put in by Dr Schwartz at [facility] in [place], [place]. Family History Grandmother Diabetes maternal Hypertension MATERNAL Grandfather Hypertension MATERNAL Mother Hypertension Hyperlipidemia Denies family history of Colon cancer Ovarian cancer Clotting disorder Heart disease Breast cancer Anesthesia complication Bleeding disorder Uterine cancer Thyroid disease Stroke Social History Smoking and tobacco/nicotine status: never used tobacco/nicotine Alcohol intake: never Substance/Drug Use: never Adopted: No Caregiver/support person: No Lives independently: Yes Household members: spouse and children Housing: House Marital status: Number of children: 1 service: No Current occupational status: employed Current occupational exposures/hazards: No Do you think of yourself as: Straight/Heterosexual Current gender identity: Female Female Reproductive History: Date of last menstrual period: 06/07/24 Para: 1 Physical Exam Const: COMMON NORMALS: no acute distress, patient oriented x3 and healthy appearing HENMT: COMMON NORMALS: normocephalic and atraumatic HEAD & SCALP: normocephalic and atraumatic Eye: COMMON NORMALS: conjunctivae normal CONJUNCTIVA: Yes conjunctivae normal Neck/C-Spine: COMMON NORMALS: full ROM and supple Chest: COMMONS NORMALS: normal inspection of the chest Resp: COMMON NORMALS: normal respiratory effort, No retractions, No use of accessory muscles and clear to auscultation bilaterally AUSCULTATION: clear to auscultation bilaterally Cardio: COMMON NORMALS: regular rate, regular rhythm and No murmurs present (Cardio) RATE: regular rate RHYTHM: regular rhythm GI: COMMON NORMALS: Normal to inspection, nondistended, normoactive bowel sounds present, Soft to palpation, non-tender and no masses PALPATION: Yes Soft to palpation Extremity: COMMON NORMALS: normal to inspection and full ROM Neuro: COMMON NORMALS: patient oriented x3, moves all extremities and no focal motor deficits Psych: COMMON NORMALS: mental status grossly normal, Normal thought process present and cooperative THOUGHT PROCESS: Normal thought process present Skin: COMMON NORMALS: no rashes or lesions noted and no wounds GENERAL SKIN EXAM: no rashes or lesions noted Course Vital Signs: Vital signs: Vital Signs Temperature 96.6 F L 08/10/24 05:28 Pulse Rate 73 08/10/24 09:00 Respiratory Rate 16 08/10/24 06:21 Blood Pressure 120/87 08/10/24 09:00 Pulse Oximetry 96 08/10/24 09:00 Oxygen Delivery Me thod Room Air 08/10/24 07:00 MDM - Abdominal Pain Lab Data 08/10/24 05:44 08/10/24 05:44 Labs/Radiology: Radiology Impressions Gallbladder Ultrasound 08/10/24 06:01 IMPRESSION: Findings suggestive of diffuse hepatic steatosis Laboratory Results WBC 6.96 10^3/uL (3.29-11.43) 08/10/24 05:44 RBC 5.13 10^6/uL (3.85-5.65) 08/10/24 05:44 Hgb 12.10 g/dL (11.27-16.99) 08/10/24 05:44 Hct 39.4 % (36-47) 08/10/24 05:44 MCV 76.8 fl (85-98) L 08/10/24 05:44 MCH 23.6 pg (27-33) L 08/10/24 05:44 MCHC 30.7 g/dL (30-55) 08/10/24 05:44 RDW 17.1 % (12.1-15.1) H 08/10/24 05:44 Plt Count 238 10^3/cmm (157-399) 08/10/24 05:44 MPV 10.4 fL (7.4-10.4) 08/10/24 05:44 Neut % (Auto) 56.5 % 08/10/24 05:44 Lymph % (Auto) 33.8 % 08/10/24 05:44 [place] % (Auto) 7.2 % 08/10/24 05:44 Eos % (Auto) 1.9 % 08/10/24 05:44 Baso % (Auto) 0.3 % 08/10/24 05:44 Neut # (Auto) 3.94 10^3/uL (1.8-7.7) 08/10/24 05:44 Lymph # (Auto) 2.4 10^3/uL (0.8-4.8) 08/10/24 05:44 [place] # (Auto) 0.5 10^3/uL (0.2-0.9) 08/10/24 05:44 Eos # (Auto) 0.1 10^3/uL (0.0-0.8) 08/10/24 05:44 Baso # (Auto) 0.0 10^3/uL (0.0-0.1) 08/10/24 05:44 Nucleated RBC % (auto) 0 % 08/10/24 05:44 Nucleated RBCs # 0.0 /100WBC 08/10/24 05:44 Sodium 139 mmol/L (136-145) 08/10/24 05:44 Potassium 4.0 mmol/L (3.5-5.1) 08/10/24 05:44 Chloride 103 mmol/L (98-107) 08/10/24 05:44 Carbon Dioxide 23 mmol/L (22-29) 08/10/24 05:44 Anion Gap 17.0 (5-19) 08/10/24 05:44 BUN 9 mg/dL (6-20) 08/10/24 05:44 Creatinine 0.7 mg/dL (0.5-0.9) 08/10/24 05:44 GFR Calculation 101.1 mL/min (90-130) 08/10/24 05:44 Glucose 101 mg/dL (65-115) 08/10/24 05:44 Calculated Osmolality 287 mOsm/kg (285-295) 08/10/24 05:44 Calcium 8.9 mg/dL (8.5-10.5) 08/10/24 05:44 Total Bilirubin 0.2 mg/dL (0.15-1.2) 08/10/24 05:44 AST 14 U/L (0-32) 08/10/24 05:44 ALT 13 U/L (0-33) 08/10/24 05:44 Alkaline Phosphatase 68 U/L (35-105) 08/10/24 05:44 Total Protein 7.3 g/dL (6.6-8.7) 08/10/24 05:44 Albumin 4.1 g/dL (3.5-5.2) 08/10/24 05:44 Globulin 3.2 g/dL (1.3-4.6) 08/10/24 05:44 Lipase 19 U/L (13-60) 08/10/24 05:44 HCG, Qual Negative (Negative) 08/10/24 05:44 Urine Color Yellow (Yellow) 08/10/24 06:14 Urine Appearance Clear (CLEAR) 08/10/24 06:14 Urine pH 5.5 (5-7) 08/10/24 06:14 Ur Specific [place] 1.011 (1.005-1.030) 08/10/24 06:14 Urine Protein Neg (Negative) 08/10/24 06:14 Urine Glucose (UA) Norm (Normal) 08/10/24 06:14 Urine Ketones Negative (Negative) 08/10/24 06:14 Urine Blood Neg (Negative) 08/10/24 06:14 Urine Nitrate Negative (Negative) 08/10/24 06:14 Urine Bilirubin Neg (Negative) 08/10/24 06:14 Urine Urobilinogen 1.0 mg/dL (Negative) 08/10/24 06:14 Ur Leukocyte Esterase Negative (Negative) 08/10/24 06:14 Urine RBC 0-2 /hpf (0-2) 08/10/24 06:14 Urine WBC 0-5 /hpf (0-5) 08/10/24 06:14 Ur Squamous Epith Cells 6-10 /hpf (0-5) 08/10/24 06:14 Amorphous Sediment Not Reportable 08/10/24 06:14 Urine Bacteria Trace /hpf (NONE) 08/10/24 06:14 Hyaline Casts 0-4 /lpf H 08/10/24 06:14 Discharge Plan Discharge Patient Disposition: Home Clinical Impression: Biliary colic Condition: Stable Prescriptions: New hydrocodone-acetaminophen 5-325 mg tablet 1 tab PO Q6H PRN (Reason: pain) Qty: 20 0RF promethazine 25 mg tablet 25 mg PO Q6H PRN (Reason: nausea and vomiting) Qty: 20 0RF pantoprazole 40 mg tablet,delayed release (DR/EC) 40 mg PO BID 10 Days Qty: 40 0RF Rx Instructions: 1 p.o. twice daily x 10 days then 1 p.o. daily No Action fluoxetine [Prozac] 10 mg capsule 10 mg PO DAILY Qty: 30 2RF topiramate [Topamax] 50 mg tablet 50 mg PO BID Qty: 60 2RF cholecalciferol (vitamin D3) 125 mcg (5,000 unit) capsule 125 mcg PO DAILY Qty: 30 2RF Discharge Orders: Discharge ED (Routine); Ordered 08/10/24 Ordered By: Chaka Jarrett Referrals: Jenni Sal FNP-C [Primary Care Provider] - Discharge Diet: As Directed Discharge Activity: Increase activity as tolerated Patient Instructions: Biliary Colic (ED), Diet for Stomach Ulcers and Gastritis (ED), Abdominal Pain (ED), Biliary Dyskinesia (DC), Opioid Safety, Pain Management Activity Restrictions/Additional Instructions: Thank you for choosing [facility] for your healthcare needs today. It is very important that you follow up as instructed or that you return to the Emergency Department should you have concerns or if your condition changes or worsens in any way. You were seen in the emergency room for complaints of right upper quadrant and epigastric abdominal pain. Your laboratory tests did not show significant abnormalities ultrasound of your gallbladder did not show any acute cholecystitis or stones. Suspect your pain may be coming from the stomach or possibly a poorly functioning gallbladder known as biliary dyskinesia. Recommend avoiding dairy products red meats citrus fruits fatty foods fried foods. Will start you on pantoprazole 1 tablet twice a day for 10 days then 1 tablet daily. You can use hydrocodone promethazine for pain nausea and vomiting as needed. retail business development manager will make arrangements for you to have a HIDA scan to further evaluate your gallbladder they will also make a follow-up appointment with a surgeon for you. Print Language: Citizen [place] Coding Level of Care Code ED Correctional Agency Director for Chg Fwd Documented by User: Chaka Jarrett DO 08/10/24 16:26 HPI - Abdominal Pain General: Chief Complaint: Abdominal Pain Stated Complaint: Upper ABD Pain goes into back N/V/D Time Seen by Provider: 08/10/24 05:49 Related Data Previous Rx's ?Medication ?Instructions ?Recorded fluoxetine 10 mg capsule (Prozac) 10 mg PO DAILY #30 caps 05/27/24 cholecalciferol (vitamin D3) 125 125 mcg PO DAILY #30 caps 05/28/24 mcg (5,000 unit) capsule topiramate 50 mg tablet (Topamax) 50 mg PO BID #60 tabs 06/12/24 hydrocodone 5 mg-acetaminophen 325 1 tab PO Q6H PRN pain #20 tabs 08/10/24 mg tablet pantoprazole 40 mg tablet,delayed 40 mg PO BID 10 days #40 tabs 08/10/24 release promethazine 25 mg tablet 25 mg PO Q6H PRN nausea and 08/10/24 vomiting #20 tabs Allergies Allergy/AdvReac Type Severity Reaction Status Date / Time No Known Allergies Allergy Verified 06/12/24 15:56 PFSH ED PFSH: Medical History Obesity, morbid, BMI 40.0-49.9 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 Surgical History History of hysteroscopy (06/14/22) Hysteroscopy, D&C via MyoSure performed by Dr. Robles at [facility], for AUB. Benign polyp and adenomyosis found. History of laparoscopy (06/10/19) Laparoscopic excision of right paratubal cyst. Performed by Dr. Pfeiffer at [facility]. Pathology: Serous cystadenoma History of removal of retained hardware (03/20/12) Hardware in ring finger removed by Dr. Schwartz at [facility] in [place], [place]. Status post surgery (02/14/12) Right ring finger fracture. Pin put in by Dr Schwartz at [facility] in [place]. Family History Grandmother Diabetes maternal Hypertension MATERNAL Grandfather Hypertension MATERNAL Mother Hypertension Hyperlipidemia Denies family history of Colon cancer Ovarian cancer Clotting disorder Heart disease Breast cancer Anesthesia complication Bleeding disorder Uterine cancer Thyroid disease Stroke Social History Smoking and tobacco/nicotine status: never used tobacco/nicotine Alcohol intake: never Substance/Drug Use: never Adopted: No Caregiver/support person: No Lives independently: Yes Household members: spouse and children Housing: House Marital status: Number of children: 1 service: No Current occupational status: employed Current occupational exposures/hazards: No Do you think of yourself as: Straight/Heterosexual Current gender identity: Female Course Vital Signs: Vital signs: Vital Signs Temperature 96.6 F L 08/10/24 05:28 Pulse Rate 73 08/10/24 09:00 Respiratory Rate 16 08/10/24 06:21 Blood Pressure 120/87 08/10/24 09:00 Pulse Oximetry 96 08/10/24 09:00 Oxygen Delivery Me thod Room Air 08/10/24 07:00 MDM - Abdominal Pain Medical Decision Making Care assumed at change of shift labs reviewed. Ultrasound gallbladder does not show any acute changes no signs of cholecystitis. Will discharge patient home set her up for an outpatient HIDA scan she may be having biliary dyskinesia her symptoms do sound as if she was getting biliary colic. Medical Records I reviewed the patient's medical records. Lab Data I reviewed the patient's lab results. 08/10/24 05:44 08/10/24 05:44 Labs/Radiology: Radiology Impressions Gallbladder Ultrasound 08/10/24 06:01 IMPRESSION: Findings suggestive of diffuse hepatic steatosis Laboratory Results WBC 6.96 10^3/uL (3.29-11.43) 08/10/24 05:44 RBC 5.13 10^6/uL (3.85-5.65) 08/10/24 05:44 Hgb 12.10 g/dL (11.27-16.99) 08/10/24 05:44 Hct 39.4 % (36-47) 08/10/24 05:44 MCV 76.8 fl (85-98) L 08/10/24 05:44 MCH 23.6 pg (27-33) L 08/10/24 05:44 MCHC 30.7 g/dL (30-55) 08/10/24 05:44 RDW 17.1 % (12.1-15.1) H 08/10/24 05:44 Plt Count 238 10^3/cmm (157-399) 08/10/24 05:44 MPV 10.4 fL (7.4-10.4) 08/10/24 05:44 Neut % (Auto) 56.5 % 08/10/24 05:44 Lymph % (Auto) 33.8 % 08/10/24 05:44 [place] % (Auto) 7.2 % 08/10/24 05:44 Eos % (Auto) 1.9 % 08/10/24 05:44 Baso % (Auto) 0.3 % 08/10/24 05:44 Neut # (Auto) 3.94 10^3/uL (1.8-7.7) 08/10/24 05:44 Lymph # (Auto) 2.4 10^3/uL (0.8-4.8) 08/10/24 05:44 [place] # (Auto) 0.5 10^3/uL (0.2-0.9) 08/10/24 05:44 Eos # (Auto) 0.1 10^3/uL (0.0-0.8) 08/10/24 05:44 Baso # (Auto) 0.0 10^3/uL (0.0-0.1) 08/10/24 05:44 Nucleated RBC % (auto) 0 % 08/10/24 05:44 Nucleated RBCs # 0.0 /100WBC 08/10/24 05:44 Sodium 139 mmol/L (136-145) 08/10/24 05:44 Potassium 4.0 mmol/L (3.5-5.1) 08/10/24 05:44 Chloride 103 mmol/L (98-107) 08/10/24 05:44 Carbon Dioxide 23 mmol/L (22-29) 08/10/24 05:44 Anion Gap 17.0 (5-19) 08/10/24 05:44 BUN 9 mg/dL (6-20) 08/10/24 05:44 Creatinine 0.7 mg/dL (0.5-0.9) 08/10/24 05:44 GFR Calculation 101.1 mL/min (90-130) 08/10/24 05:44 Glucose 101 mg/dL (65-115) 08/10/24 05:44 Calculated Osmolality 287 mOsm/kg (285-295) 08/10/24 05:44 Calcium 8.9 mg/dL (8.5-10.5) 08/10/24 05:44 Total Bilirubin 0.2 mg/dL (0.15-1.2) 08/10/24 05:44 AST 14 U/L (0-32) 08/10/24 05:44 ALT 13 U/L (0-33) 08/10/24 05:44 Alkaline Phosphatase 68 U/L (35-105) 08/10/24 05:44 Total Protein 7.3 g/dL (6.6-8.7) 08/10/24 05:44 Albumin 4.1 g/dL (3.5-5.2) 08/10/24 05:44 Globulin 3.2 g/dL (1.3-4.6) 08/10/24 05:44 Lipase 19 U/L (13-60) 08/10/24 05:44 HCG, Qual Negative (Negative) 08/10/24 05:44 Urine Color Yellow (Yellow) 08/10/24 06:14 Urine Appearance Clear (CLEAR) 08/10/24 06:14 Urine pH 5.5 (5-7) 08/10/24 06:14 Ur Specific [place] 1.011 (1.005-1.030) 08/10/24 06:14 Urine Protein Neg (Negative) 08/10/24 06:14 Urine Glucose (UA) Norm (Normal) 08/10/24 06:14 Urine Ketones Negative (Negative) 08/10/24 06:14 Urine Blood Neg (Negative) 08/10/24 06:14 Urine Nitrate Negative (Negative) 08/10/24 06:14 Urine Bilirubin Neg (Negative) 08/10/24 06:14 Urine Urobilinogen 1.0 mg/dL (Negative) 08/10/24 06:14 Ur Leukocyte Esterase Negative (Negative) 08/10/24 06:14 Urine RBC 0-2 /hpf (0-2) 08/10/24 06:14 Urine WBC 0-5 /hpf (0-5) 08/10/24 06:14 Ur Squamous Epith Cells 6-10 /hpf (0-5) 08/10/24 06:14 Amorphous Sediment Not Reportable 08/10/24 06:14 Urine Bacteria Trace /hpf (NONE) 08/10/24 06:14 Hyaline Casts 0-4 /lpf H 08/10/24 06:14 All radiology interpretation(s) finalized by discharge Discharge Plan Discharge Patient Disposition: Home Clinical Impression: Biliary colic Condition: Stable Prescriptions: New hydrocodone-acetaminophen 5-325 mg tablet 1 tab PO Q6H PRN (Reason: pain) Qty: 20 0RF promethazine 25 mg tablet 25 mg PO Q6H PRN (Reason: nausea and vomiting) Qty: 20 0RF pantoprazole 40 mg tablet,delayed release (DR/EC) 40 mg PO BID 10 Days Qty: 40 0RF Rx Instructions: 1 p.o. twice daily x 10 days then 1 p.o. daily No Action fluoxetine [Prozac] 10 mg capsule 10 mg PO DAILY Qty: 30 2RF topiramate [Topamax] 50 mg tablet 50 mg PO BID Qty: 60 2RF cholecalciferol (vitamin D3) 125 mcg (5,000 unit) capsule 125 mcg PO DAILY Qty: 30 2RF Discharge Orders: Discharge ED (Routine); Ordered 08/10/24 Ordered By: Chaka Jarrett Referrals: Jenni Sal FNP-C [Primary Care Provider] - Discharge Diet: As Directed Discharge Activity: Increase activity as tolerated Patient Instructions: Biliary Colic (ED), Diet for Stomach Ulcers and Gastritis (ED), Abdominal Pain (ED), Biliary Dyskinesia (DC), Opioid Safety, Pain Management Activity Restrictions/Additional Instructions: Thank you for choosing [facility] for your healthcare needs today. It is very important that you follow up as instructed or that you return to the Emergency Department should you have concerns or if your condition changes or worsens in any way. You were seen in the emergency room for complaints of right upper quadrant and epigastric abdominal pain. Your laboratory tests did not show significant abnormalities ultrasound of your gallbladder did not show any acute cholecystitis or stones. Suspect your pain may be coming from the stomach or possibly a poorly functioning gallbladder known as biliary dyskinesia. Recommend avoiding dairy products red meats citrus fruits fatty foods fried foods. Will start you on pantoprazole 1 tablet twice a day for 10 days then 1 tablet daily. You can use hydrocodone promethazine for pain nausea and vomiting as needed. retail business development manager will make arrangements for you to have a HIDA scan to further evaluate your gallbladder they will also make a follow-up appointment with a surgeon for you. Print Language: Citizen [place] Coding Level of Care Code ED Correctional Agency Director for Ana Echeverria
--- NOTE | 2024-08-10 06:01 | USR_ITS ---
PROCEDURE INFORMATION: Exam: US Abdomen, Limited; Right Upper Quadrant Exam date and time: 08/10/2024 6:57 AM Age: 24 years old Clinical indication: Abdominal pain; Localized; Other: Epi; Additional info: Ruq pain TECHNIQUE: Imaging protocol: Real time ultrasound of the abdomen with image documentation. Limited exam focused on the right upper quadrant. COMPARISON: US gall bladder [id number] 06/13/2022 7:26 PM FINDINGS: Liver: Liver is suboptimally visualized secondary to obscuration from adjacent bowel gas. Liver demonstrates diffusely increased/coarse echotexture which is nonspecific but can be seen in the setting of diffuse hepatic steatosis. No definite focal liver lesion demonstrated. Liver is grossly within normal limits for size. Gallbladder: Gallbladder shows no stones or wall thickening. Equivocal/minimal nonspecific pericholecystic fluid. Biliary ducts: CBD is within normal limits measuring 6 mm diameter maximally. Pancreas: Poorly visualized secondary to obscuration from adjacent bowel gas Right kidney: Right kidney is 11.2 cm in length and shows normal echotexture, cortical thickness contours and blood flow, with no shadowing stone, mass or findings of urinary obstruction. Aorta: Visualized midportion of the abdominal aorta is within normal limits measuring 1.4 cm diameter US/US gall bladder [id number] IMPRESSION: Findings suggestive of diffuse hepatic steatosis
[2024-08-10] MEDS: ondansetron 2 mg/ML SDV 2 mL 4 MG IVP (06:06)
[2024-08-10] MEDS: lidocaine 2% viscous 15 ML, aluminum-mag hydrox-simethicon 30 ML, sucralfate oral liq 1 GM PO (06:08)
[2024-08-10 06:18] LABS: Basophils % 0.3 %; Eosinophils # 0.1 10^3/uL (0.0-0.8); Eosinophils % 1.9 %; Hematocrit 39.4 % (36-47); Lymphocytes # 2.4 10^3/uL (0.8-4.8); Lymphocytes % 33.8 %; Mean Corpuscular HGB Conc 30.7 g/dL (30-55); Mean Corpuscular Hemoglobin 23.6 pg (27-33); Mean Corpuscular Volume 76.8 fl (85-98); Mean Platelet Volume 10.4 fL (7.4-10.4); Monocytes # 0.5 10^3/uL (0.2-0.9); Monocytes % 7.2 %; Neutrophils # 3.94 10^3/uL (1.8-7.7); Neutrophils % 56.5 %; Nucleated Red Blood Cells % 0 %; Platelet Count 238 10^3/cmm (157-399); Red Blood Count 5.13 10^6/uL (3.85-5.65); Red Cell Distribution Width 17.1 % (12.1-15.1); White Blood Count 6.96 10^3/uL (3.29-11.43)
[2024-08-10 06:21] VITALS: BP 134/76; PULSE 75; RESP 16; O2SAT 94
[2024-08-10 06:33] LABS: HCG, Serum Qual Negative (Negative)
[2024-08-10 06:33] LABS: Bacteria Urine Trace /hpf; Hyaline Casts Urine 0-4 /lpf; RBC Urine 0-2 /hpf (0-2); WBC Urine 0-5 /hpf (0-5)
[2024-08-10 06:38] LABS: Alanine Aminotransferase 13 U/L (0-33); Albumin Level 4.1 g/dL (3.5-5.2); Alkaline Phosphatase 68 U/L (35-105); Aspartate Amino Transferase 14 U/L (0-32); Blood Urea Nitrogen 9 mg/dL (6-20); Calcium 8.9 mg/dL (8.5-10.5); Carbon Dioxide 23 mmol/L (22-29); Chloride 103 mmol/L (98-107); Creatinine Clr Calc Pharmacy 159.9388; Globulin 3.2 g/dL (1.3-4.6); Glomerular Filtration Rate 101.1 mL/min (90-130); Glucose 101 mg/dL (65-115); Lipase 19 U/L (13-60); Osmolality Calculated 287 mOsm/kg (285-295); Sodium 139 mmol/L (136-145); Total Bilirubin 0.2 mg/dL (0.15-1.2); Total Protein 7.3 g/dL (6.6-8.7)
[2024-08-10 06:44] LABS: Add Urine Microscopic? YES; Bilirubin Urine Neg (Negative); Blood Urine Neg (Negative); Glucose Urine UA Norm (Normal); Ketones Urine Negative (Negative); Leukocyte Esterase Urine Negative (Negative); Nitrate Urine Negative (Negative); Protein Urine Neg (Negative); Specific Gravity, Urine 1.011 (1.005-1.030); Urine Appearance Clear (CLEAR); Urine Color Yellow (Yellow); pH Urine 5.5 (5-7)
[2024-08-10 07:00] VITALS: BP 110/60; PULSE 75; O2SAT 92
--- NOTE | 2024-08-10 07:26 | PC.PHAR ---
Pt seems to be a bit late refilling current meds but states she still takes them.
[2024-08-10 09:00] VITALS: BP 120/87; PULSE 73; O2SAT 96
--- NOTE | 2024-08-11 08:02 | DCPLANNER ---
messaged gen surgery and faxed outpatient hida order to scheduling for er f/u
== END 2024-08-10 09:01 | disposition home or self-care (01) ==
PROVIDERS: Emergency Medicine; Emergency Provider Family Medicine; PCP Nurse Practitioner Family
DX: K80.50 Calculus of bile duct without cholangitis or cholecystitis without obstruction (principal)
CPT/HCPCS: 36415; 76705; 80053; 81001; 83690; 84703; 85025; 96374; 99284; J2405; J9999

== ENCOUNTER → 2024-09-03 14:52 | Outpatient (BNVA) | payer MEDICAID, SELFPAY | PROVIDERS: PCP Nurse Practitioner; Visit Provider Nurse Practitioner | DX: E55.9 Vitamin D deficiency, unspecified (principal) | CPT/HCPCS: 82306 ==

== ENCOUNTER → 2024-11-26 11:34 | Outpatient (BNVA) | payer MEDICAID, SELFPAY | PROVIDERS: PCP Nurse Practitioner; Visit Provider Clinical Nurse Specialist Adult Health | DX: R10.9 Unspecified abdominal pain (principal); R11.2 Nausea with vomiting, unspecified | CPT/HCPCS: 86003; 86008; 86618; 86666; 86757 ==

== ENCOUNTER 2024-12-19 11:51 | Outpatient (CLI) | payer MEDICAID, SELFPAY ==
[2024-12-19 13:28] LABS: Follicle Stimulating Hormone 6.3 mIU/mL
== END 2024-12-19 11:52 | disposition home or self-care (01) ==
PROVIDERS: PCP Nurse Practitioner; Visit Provider Internal Medicine
DX: E28.2 Polycystic ovarian syndrome (principal)
CPT/HCPCS: 36415; 82670; 83001; 83002; 83520; 84144; 84146; 84702

== ENCOUNTER 2024-12-30 10:36 | Outpatient (CLI) | payer MEDICAID, SELFPAY ==
--- NOTE | 2024-12-30 11:15 | US_ITS ---
WS: [id number] US transvaginal [id number] HISTORY: PCOS, secondary amenorrhea. COMPARISON: 02/13/2024 Uterus: 6.9 cm x 4.7 cm x 4.0 cm. Normal size uterus. Uterus is posteriorly tilted. No fibroid or mass. Endometrium: 1.0 cm. Normal endometrium. Right ovary: 2.5 cm x 3.0 cm x 2.1 cm. Normal size and vascularity, no cystic or solid masses. Small follicle measures 1.6 x 1.6 x 1.6 cm. There are additional small peripheral follicles. Left ovary: 1.4 cm x 2.1 cm x 2.0 cm. Normal size ovary with a few small scattered peripheral follicles. No free fluid in the cul-de-sac. US/US transvaginal [id number] IMPRESSION: 1. Normal size ovary with a few small ovarian follicles. The number of follicl es is less than what is normally seen with polycystic ovarian syndrome. Ovaries are not enlarged. 2. Normal uterus.
== END 2024-12-30 10:37 | disposition home or self-care (01) ==
PROVIDERS: PCP Nurse Practitioner; Visit Provider Internal Medicine
DX: E28.2 Polycystic ovarian syndrome (principal)
CPT/HCPCS: 76830

== ENCOUNTER → 2025-02-02 14:01 | Outpatient (BNVA) | payer MEDICAID, SELFPAY | PROVIDERS: PCP Nurse Practitioner; Visit Provider Nurse Practitioner | DX: E55.9 Vitamin D deficiency, unspecified (principal) | CPT/HCPCS: 82306 ==

== ENCOUNTER → 2025-02-09 12:17 | Outpatient (BNVA) | payer MEDICAID, SELFPAY | PROVIDERS: PCP Nurse Practitioner; Visit Provider Clinical Nurse Specialist Adult Health | DX: J06.9 Acute upper respiratory infection, unspecified (principal) | CPT/HCPCS: 87880 ==

== ENCOUNTER → 2025-02-19 15:45 | Outpatient (BNVA) | payer MEDICAID, SELFPAY | PROVIDERS: PCP Nurse Practitioner | DX: R39.9 Unspecified symptoms and signs involving the genitourinary system (principal); R63.1 Polydipsia | CPT/HCPCS: 81000; 82962 ==

== ENCOUNTER → 2025-02-23 14:41 | Outpatient (BNVA) | payer MEDICAID, SELFPAY | PROVIDERS: PCP Nurse Practitioner; Visit Provider Nurse Practitioner | DX: R00.0 Tachycardia, unspecified (principal); N91.2 Amenorrhea, unspecified | CPT/HCPCS: 80053; 84443; 84703; 85025 ==

== ENCOUNTER → 2025-04-01 08:26 | Outpatient (BNVA) | payer MEDICAID, SELFPAY | PROVIDERS: PCP Nurse Practitioner; Visit Provider Nurse Practitioner Women's Health | DX: N91.2 Amenorrhea, unspecified (principal); Z34.90 Encounter for supervision of normal pregnancy, unspecified, unspecified trimester | CPT/HCPCS: 81025; 84702; 86850; 86900 ==

== ENCOUNTER 2025-04-17 21:02 | Emergency (ER) | payer MEDICAID, SELFPAY ==
--- OUTSIDE RECORDS SUMMARY | 2025-04-17 21:12 | XMS_ITS | Clinical Summary ---
Author Organization [employer] Address [address] [facility] Attn: Epic Prelude ADT JOSELIN GONZALEZ [id number] Care Team Providers Care Process Cheese Cooker Name Role Phone Naveen Huerta NP Primary Care Provider Allergies No known active allergies Medications ciprofloxacin HCl (CIPRO) 500 mg tablet Take 1 Tablet (500 mg) by mouth 2 times daily. 15 Tablet 0 12/02/2017 Active Social History Tobacco Use Types Packs/Day Years Used Date Smoking Tobacco: Never Smokeless Tobacco: Never Alcohol Use Standard Drinks/Week Comments No 0 (1 standard drink = 0.6 oz pur e alcohol) Comments Unknown Sex and Gender Information Value Date Recorded Sex Assigned at Not on file Legal Sex Female 1:55 PM SENIOR APPLICATIONS ENGINEER Gender Identity Not on file Sexual Orientation Not on file Last Filed Vital Signs Vital Sign Reading Time Taken Comments Blood Pressure 112/55 12/02/2017 8:45 PM CDT Pulse - - Temperature 36.8 C (98.2 F) 12/02/2017 8:45 PM CDT Respiratory Rate 16 12/02/2017 8:45 PM CDT Oxygen Saturation - - Inhaled Oxygen Concentration - - Weight 104.3 kg (230 lb) 12/02/2017 6:02 PM CDT Height 165.1 cm (5' 5 ) 12/02/2017 6:02 PM CDT Body Mass Index 38.27 12/02/2017 6:02 PM CDT Plan of Treatment Health Maintenance Due Date Last Done Comments DTAP/TDAP/TD VACCINES (1 - Tdap) 2017 HEPATITIS B VACCINES (1 of 3 - 19+ 3-dose series) 03/23 CERVICAL CANCER SCREENING 2019 HPV/Cotest (21-29) 2019 PAP SMEAR 2019 INFLUENZA VACCINE (#1) 2024 HPV VACCINES (No Doses Required) Completed Care Teams Process Cheese Cooker Relationship Specialty Start Date End Date Naveen Huerta NP [address] [place] [id number] PCP - General NURSE PRACTITIONER 12/02/17
--- OUTSIDE RECORDS SUMMARY | 2025-04-17 21:12 | XMS_ITS | Clinical Summary ---
Author Organization [facility] Address [address] [facility] [address] [place] [address] Phone Care Team Providers Care Carpet Layer Name Role Phone Naveen Huerta NP Primary Care Provider Allergies No known active allergies Medications ciprofloxacin HCl (CIPRO) 500 mg tablet Take 1 Tablet (500 mg) by mouth 2 times daily. 15 Tablet 12/02/2017 Active Social History Tobacco Use Types Packs/Day Years Used Date Smoking Tobacco: Never Smokeless Tobacco: Never Alcohol Use Standard Drinks/Week Comments No 0 (1 standard drink = 0.6 oz pur e alcohol) Comments Unknown Sex and Gender Information Value Date Recorded Sex Assigned at Not on file Legal Sex Female 5:51 PM CDT Gender Identity Not on file Sexual Orientation Not on file Last Filed Vital Signs Vital Sign Reading Time Taken Comments Blood Pressure 112/55 12/02/2017 8:45 PM CDT Pulse - - Temperature 36.8 C (98.2 F) 12/02/2017 8:45 PM CDT Respiratory Rate 16 12/02/2017 8:45 PM CDT Oxygen Saturation 97% 12/02/2017 8:45 PM CDT Inhaled Oxygen Concentration - - Weight 104.3 [...] 2024 HPV VACCINES (No Doses Required) Completed Insurance MEDICAID [place] Care Teams Carpet Layer Relationship Specialty Start Date End Date Naveen Huerta NP [address] [place] [phone] PCP - General NURSE PRACTITIONER 12/02/17
--- NOTE | 2025-04-17 21:17 | USR_ITS ---
PROCEDURE INFORMATION: Exam: US First Trimester, Transabdominal Exam date and time: 04/17/2025 9:37 PM Age: 25 years old Clinical indication: Lmp or gestational age (in weeks): 10w1d; Antepartum complications; Bleeding; ; Additional info: Spotting; 10 wks preg LABS AND CLINICAL REPORTS: Last menstrual period start date: Unknown Gestational age (Established): 10 w 1 d Estimated due date (Established): 11/12/2025 TECHNIQUE: Imaging protocol: Real-time transabdominal obstetrical ultrasound of the maternal pelvis and a first trimester , less than 14 weeks 0 days, with image documentation. COMPARISON: US OB <=14 wk fetus w tv CC 04/02/2025 7:56 AM FINDINGS: GESTATION: Gestation: Single intrauterine gestation. Yolk sac is regular and round in morphology. Embryo/ cardiac activity (BPM): 161 bpm Extra-embryonic membranes/Placenta: Unremarkable. No subchorionic bleed. Amniotic/Chorionic fluid: Amniotic and extra-amniotic fluid are normal for gestational age. BIOMETRY: Gestational age (AUA): 10 weeks 2 day MATERNAL: Uterus: Unremarkable. Cervix: Cervical length measures 3.1 cm. Right ovary/adnexa: Ovarian cyst noted. 1.9 cm. Left ovary/adnexa: Normal Intraperitoneal space: No intraperitoneal free fluid. US/US OB <= 14 weeks fetus [id number] IMPRESSION: Viable gestation 10 weeks 2 days without acute complication.
[2025-04-17 21:27] VITALS: BP 127/84; PULSE 94; RESP 16; TEMP 36.9; O2SAT 96; BMI 42.8
[2025-04-17 21:34] LABS: Hematocrit 40.8 % (36-47); Hemoglobin 13.10 g/dL (11.27-16.99); Mean Corpuscular HGB Conc 32.1 g/dL (30-55); Mean Corpuscular Hemoglobin 25.6 pg (27-33); Mean Corpuscular Volume 79.8 fl (85-98); Nucleated Red Blood Cells % 0 %; Platelet Count 231 10^3/cmm (157-399); Red Blood Count 5.11 10^6/uL (3.85-5.65); White Blood Count 5.44 10^3/uL (3.29-11.43)
--- NOTE | 2025-04-17 21:59 | ED_ITS ---
HPI - Female Genitourinary 2 General: Chief complaint: Vaginal Bleeding Stated complaint: 10 wk preg spotting. Time Seen by Provider: 04/17/25 21:32 Source: patient Mode of arrival: ambulatory Limitations: no limitations History of Present Illness: Patient is a female at approximately 10 weeks here for a complaint of vaginal bleeding that she noticed earlier today. Patient states she noticed bright red blood and then pink discharge only when wiping. She is not having any pain or cramping. Sexual intercourse yesterday. Patient concerned as they have struggled with infertility and have tried for years for this . She does follow-up with [facility]. Next appointment in few weeks. Blood type A+. MD elicited complaint: vaginal bleeding Onset (ago): hour(s) Severity: mild Vaginal discharge: none Vaginal bleeding: scant Exacerbating factors: none Relieving factors: none Associated symptoms: Deny abdominal pain or vaginal discharge Treatment prior to arrival: none Sexual activity: Yes Patient : Yes Related Data Home Medications ?Medication ?Instructions ?Recorded ?Confirmed vitamins with calcium tab PO 04/01/25 5 no.72-iron 27 mg-folic acid 1 mg tablet ( Vitamins Plus Low Iron) Previous Rx's ?Medication ?Instructions ?Recorded cetirizine 10 mg tablet (Zyrtec) 10 mg PO DAILY #30 ta bs 02/02/25 Allergies Allergy/AdvReac Type Severity Reaction Status Date / Time No Known Allergies Allergy Verified 04/01/25 09:03 Review of Systems 2 GI: Denies: abdominal pain : Reports: vaginal bleeding; Denies: flank pain, dysuria, hematuria, genital pruritis, vaginal discharge or pelvic pain Musc: Denies: back pain Neuro: Denies: dizziness PFSH ED 2 PFSH: Medical History Obesity, morbid, BMI 40.0-49.9 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 Surgical History History of hysteroscopy (06/14/22) Hysteroscopy, D&C via MyoSure performed by Dr. Robles at [facility], for AUB. Benign polyp and adenomyosis found. History of laparoscopy (06/10/19) Laparoscopic excision of right paratubal cyst. Performed by Dr. Pfeiffer at [facility]. Pathology: Serous cystadenoma History of removal of retained hardware (03/20/12) Hardware in ring finger removed by Dr. Schwartz at [facility] in [place], [place]. Status post surgery (02/14/12) Right ring finger fracture. Pin put in by Dr Schwartz at [facility] in [place], [place]. Family History Grandmother Diabetes maternal Hypertension MATERNAL Grandfather Hypertension MATERNAL Mother Hypertension Hyperlipidemia Denies family history of Colon cancer Ovarian cancer Clotting disorder Heart disease Breast cancer Anesthesia complication Bleeding disorder Uterine cancer Thyroid disease Stroke Social History Smoking and tobacco/nicotine status: never used tobacco/nicotine Alcohol intake: never Substance/Drug Use: never Adopted: No Caregiver/support person: No Lives independently: Yes Household members: spouse and children Housing: House Marital status: Number of children: 1 service: No Current occupational status: employed Current occupational exposures/hazards: No Do you think of yourself as: Straight/Heterosexual Current gender identity: Female Female Reproductive History: Para: 1 Physical Exam 2 Const: COMMON NORMALS: no acute distress, no limitations, alert and well nourished GI: COMMON NORMALS: Normal to inspection, nondistended, normoactive bowel sounds present, Soft to palpation, non-tender, No hepatosplenomegaly present and no masses PALPATION: Yes Soft to palpation and Yes No hepatosplenomegaly present : COMMON NORMALS: Yes no CVA tenderness BLADDER/KIDNEY EXAM: Yes no CVA tenderness Back/Pelvis: COMMON NORMALS: no CVA tenderness Neuro: SENSORIUM/ORIENTATION: Yes alert Course 2 Vital Signs: Vital signs: Vital Signs Temperature 98.4 F 04/17/25 21:27 Pulse Rate 94 04/17/25 21:27 Respiratory Rate 16 04/17/25 21:27 Blood Pressure 127/84 04/17/25 21:27 Pulse Oximetry 96 04/17/25 21:27 Oxygen Delivery Me thod Room Air 04/17/25 21:27 MDM - Female Medical Decision Making Patient appears in no acute distress. Vital signs are stable. CBC showing a stable H/H. US obtained here in the emergency department and spoke to US johnathan Griffin following this-live IUP visualized, active, with HR in the 160s. Patient happy/relieved to hear/see this. She does not require RhoGAM. Recommend pelvic rest/limit lifting until she sees OB in a few weeks. Medical Records I reviewed the patient's medical records. Lab Data I reviewed the patient's lab results. 04/17/25 21: Laboratory Results WBC 5.44 10^3/uL (3.29-11.43) 04/17/25: RBC 5.11 10^6/uL (3.85-5.65) 04/17/25: Hgb 13.10 g/dL (11.27-16.99) 04/17/25: Hct 40.8 % (36-47) 04/17/25: MCV 79.8 fl (85-98) L 04/17/25: MCH 25.6 pg (27-33) L 04/17/25: MCHC 32.1 g/dL (30-55) 04/17/25: RDW 15.4 % (12.1-15.1) H 04/17/25: Plt Count 231 10^3/cmm (157-399) 04/17/25: MPV 10.3 fL (7.4-10.4) 04/17/25: Neut % (Auto) 61.4 % 04/17/25: Lymph % (Auto) 29.2 % 04/17/25: Smith % (Auto) 7.5 % 04/17/25: Eos % (Auto) 1.3 % 04/17/25: Baso % (Auto) 0.4 % 04/17/25: Neut # (Auto) 3.34 10^3/uL (1.8-7.7) 04/17/25: Lymph # (Auto) 1.6 10^3/uL (0.8-4.8) 04/17/25: Smith # (Auto) 0.4 10^3/uL (0.2-0.9) 04/17/25 21:25 Eos # (Auto) 0.1 10^3/uL (0.0-0.8) 04/17/25 21:25 Baso # (Auto) 0.0 10^3/uL (0.0-0.1) 04/17/25 21:25 Nucleated RBC % (auto) 0 % 04/17/25 21:25 Nucleated RBCs # 0.0 /100WBC 04/17/25 21:25 Ser , Semi-Qnt 13908.00 mIU/mL 04/17/25 21:25 XR interpretation done by ED provider, pending radiology final review Discharge Plan Discharge Patient Disposition: Home Clinical Impression: Vaginal bleeding during Condition: Stable Prescriptions: No Action cetirizine [Zyrtec] 10 mg tablet 10 mg PO DAILY Qty: 30 5RF Vitamin Plus Low Iron 27 mg iron- 1 mg tablet PO Discharge Orders: Discharge ED (Routine); Ordered 04/17/25 Ordered By: Chitra Schofield Referrals: Naveen Huerta, [facility] [Primary Care Provider, Family Practice] Patient Instructions: Patient Portal & Jeni Instructions Activity Restrictions/Additional Instructions: As we discussed, ultrasound here showing a live intrauterine . We discussed pelvic rest and limit lifting until you follow-up with OB in a few weeks as scheduled. You may return to the emergency department with any further concerns you may have. Print Language: Serbian Coding Level of Care Code ED Associate Dean for Ana Echeverria
== END 2025-04-17 22:25 | disposition home or self-care (01) ==
PROVIDERS: Emergency Provider Physician Assistant; PCP Nurse Practitioner
DX: O20.9 Hemorrhage in early pregnancy, unspecified (principal); Z3A.10 10 weeks gestation of pregnancy
CPT/HCPCS: 36415; 76801; 84702; 85025; 99284